=== PATIENT | male | born 1950 | race Caucasian/White ===

== ENCOUNTER 2024-08-07 14:22 | Inpatient (IN) ==
[2024-08-07 15:42] LABS: Basophils # (auto) 0.06 K/uL (0.00-0.20); Basophils % (auto) 0.7 %; Eosinophils # (auto) 0.26 K/uL (0.00-0.50); Hematocrit (blood only) 43.6 % (42.0-52.0); Hemoglobin 14.3 g/dl (14.0-18.0); Immature Granulocytes # (auto) 0.03 K/uL (0.01-0.20); Immature Granulocytes % (auto) 0.3 %; Lymphocytes # (auto) 2.05 K/uL (1.20-3.40); Lymphocytes % (auto) 23.4 %; Mean Corpuscular Hemoglobin 26.2 pg (25.0-34.0); Mean Corpuscular Hgb Conc 32.8 g/dL (32.0-36.0); Mean Corpuscular Volume 79.9 fL (80.0-100.0); Mean Platelet Volume 9.1 fL (9.4-12.4); Monocytes # (auto) 0.69 K/uL (0.11-0.59); Monocytes % (auto) 7.9 %; Neutrophils # (auto) 5.67 K/uL (1.40-6.50); Neutrophils % (auto) 64.7 %; Platelet Count 299 K/uL (130-400); RDW Coefficient of Variation 15.3 % (11.5-14.5); RDW Standard Deviation 44.3 fL (36.4-46.3); Red Blood Count 5.46 M/uL (4.70-6.10); White Blood Count 8.76 K/ul (4.8-10.8)
[2024-08-07 15:58] LABS: Albumin Globulin Ratio 1.3 (0.9-2); Albumin Level 4.3 gm/dl (3.4-5.0); BUN Creatinine Ratio 15.8 (10-20); Bilirubin,Total 0.6 mg/dl (0.2-1.0); Calcium 9.7 mg/dl (8.6-10.3); Creatinine Clr Calc Pharmacy 65.1 ml/min; Globulin 3.2 gm/dl (2.5-4.0); Potassium 4.2 mmol/L (3.5-5.1); Total Protein 7.5 gm/dl (6.0-8.3)
[2024-08-07] MEDS: OPTIRAY 320 100ml IV ONE (16:10)
--- NOTE | 2024-08-07 16:34 | CT Scan Report ---
CT abd pelvis IV con only CLINICAL HISTORY: lower abd pain TECHNIQUE: Helical axial images of the abdomen and pelvis were obtained and displayed. Automated dose lowering techniques and/or adjustment according to patient size were utilized for this exam. This e xam was performed with intravenous contrast. CT DOSE: 1127.28 mGy.cm COMPARISON: Prior CT abdomen pelvis 06/25/2022 FINDINGS: Lower chest: Bibasilar atelectasis versus scarring is seen. Liver: Subcentimeter hypodensities in the liver are too small to characterize. Gallbladder and biliary tree: Cholelithiasis is seen without evidence of cholecystitis. No intra- or extrahepatic biliary ductal dilation. Pancreas: Unremarkable, no focal lesions. Spleen: Wedge-shaped hypoperfusion of the spleen is noted. There is new from prior exam. Adrenals: Unremarkable. Kidneys and ureters: Bilateral lobulation of the kidney is again seen. Bladder: Unremarkable. Reproductive organs: Unremarkable. Bowel: Diverticulosis is seen without diverticulitis. The appendix is normal. Lymph nodes Retroperitoneal: Unremarkable. Pelvic: Unremarkable. Mesenteric: There is a soft tissue mass adjacent to the lesser gastric curvature measuring 3.2 x 2.4 cm with a hypodense center. There are subcentimeter surrounding nodules. Peritoneum: Normal. Vessels: Atherosclerotic calcifications are seen. Tiny infrarenal aneurysm measures 26 mm in diameter . Abdominal wall: A fat-containing umbilical hernia is seen. Bones: Degenerative changes in the visualized spine. IMPRESSION: 1. There is a mass abutting the stomach concerning for necrotic lymph node with surrounding subcenti meter nodes, likely malignancy of unknown origin. 2. Wedge-shaped hypodensities in the spleen, splenic infarcts cannot be excluded. 3. Diverticulosis without diverticulitis. 4. Additional findings as above. ACT 112: Negative or not required by law. Electronically signed by: Carrington Lew M.D. 08/07/2024 4:32 PM
--- NOTE | 2024-08-07 17:20 | Emergency Department Note ---
Impression & Plan Splenic infarct, Abdominal mass ED Provider Note NAME: ZEE CHOWDARY AGE: 74 SEX: M : 1950 ARRIVES VIA: Walk-In INFORMANT: Patient, family ED PROVIDER(S): Maurilio Suh MD CHIEF COMPLAINT: Abdominal pain MEDICAL DECISION MAKING: Patient presents due to concern abdominal pain. IV was established and blood work was obtained. Patient with a normal white count hemoglobin and platelet count. The patient's kidney function is unremarkable. Urinalysis without signs of blood or infection. CT abdomen pelvis does show concern for mass abutting the stomach concerning for necrotic lymph node. There also may be associated splenic infarcts although cannot be excluded. Patient does not have any significant upper abdominal pain but does complain of occasional discomfort. I did discuss the findings with the patient and the patient's family bedside. I discussed with the patient would likely benefit from a biopsy as well as additional hematology oncology consultation. They are comfortable with that plan of care. Given the possible new cancer diagnosis I did speak with on-call hematology oncologist States he stated the patient would likely benefit from biopsy. I did speak to the on-call medicine service Dr. Currie who requested a general surgery consultation given this possible mass abutting the stomach. I did speak with Camden Garcia PA-C and the patient would be evaluated. The patient was admitted by the medicine service. Discussion w/ other healthcare providers: Dr. Tan with hematology/oncology Camden Garcia PA-C with Dr. Waller general surgery Dr. Currie inpatient medicine service Prior /Outside records reviewed: None Differential diagnosis: Appendicitis, testicular torsion, UTI, diverticulitis, obstruction, renal colic, mesenteric adenitis, enteririts, PUD, pancreatitis, biliary pathology, hernia, volvulus, constipation, as well as other pathologies were considered. Diagnostics, as interpreted by me: ECG: None Cardiac monitoring: An order was placed for continuous cardiac monitoring. The monitor shows a rate of 65 with sinus rhythm. Patient was placed on pulse oximetry Medical decision rules: None Imaging studies: I informally interpreted the patient's CT abdomen pelvis does not show obvious bowel obstruction with formal report to follow. HPI: Patient presents due to concern for abdominal pain. The patient states that began on Wednesday has been fairly constant although will occasionally wax and wane. The patient notices it more in his upper left abdomen. The patient denies any nausea vomiting. No heavy lifting falls or trauma. The patient denies any blood in urine or stool. Patient has not taken anything for symptoms at home. Today the patient's pain was a bit more uncomfortable and thus presented here for further evaluation and treatment. Patient is accompanied by family at bedside. PAST MEDICAL HISTORY: See Below PAST SURGICAL HISTORY: See Below SOCIAL HISTORY: See Below HOME MEDICATIONS: See Below ALLERGIES: See Below VITALS: See Below PHYSICAL EXAMINATION: GENERAL: NAD, non-toxic. EYE EXAM: Normal conjunctiva. PERRL, no anisocoria and EOM's grossly intact w/o pain. OROPHARYNX: Moist mucus membranes, grossly normal dentition. NECK: Trachea midline, no stridor. Supple, no nuchal rigidity, no adenopathy, non-tender. No signs of meningismus. FROM of the neck with good chin to chest and neck extension. LUNGS: Clear to auscultation. Normal chest wall mechanics. HEART: NSR, no MRG. ABDOMEN: Abdomen soft, non-tender, no masses, no rebound or guarding. BACK: No CVA TTP. SKIN: No rashes and no bruising. UPPER EXTREMITIES: Upper extremities are grossly normal. LOWER EXTREMITIES: Grossly normal, no edema. NEURO EXAM: A&O x3, cranial nerves II-XII grossly intact, normal speech, moves all 4 extremities. Past Med/Surg History Problem List (Updated 08/08/24 @ 18:23 by Maurilio Suh MD) H/O: CVA (cerebrovascular accident) Chronic systolic CHF (congestive heart failure) Type 2 diabetes mellitus Splenic infarct (Acute) Abdominal mass (Acute) Iron deficiency anemia Dementia Weight loss Headache CAD (coronary artery disease) Stiffness due to immobility Hypertension Congestive heart failure (CHF) Diabetes COPD (chronic obstructive pulmonary disease) Active asthma Medical History Intolerant of cold CAD (coronary atherosclerotic disease) History of stroke without residual deficits Hyperlipemia History of heart attack History of alcohol abuse Hx of acne No pertinent family history Surgical History S/P CABG (coronary artery bypass graft) History of open heart surgery Family History Father Heart disease, Onset Age: 50 Myocardial infarction Social History Smoking Status: Former smoker Tobacco Type: Cigarettes Second Hand Exposure: No; Do You Dip or Chew Tobacco: No; Hx Alcohol Use: No Hx Substance Use: No Preferred Language: Urdu Communication Ability: Effective Visual Impairment: No Limitations Hearing Ability: Normal Cloud Engagement Partner Required: No Beliefs That Will Affect Care: None marital status: Current Living Situation: Family current occupational status: retired Other Information That Helps Us Care for You: No Feels Safe at Home: Yes Safety Concerns: Feels Safe At This Time Childhood Exposure to Second-Hand Smoke: Yes Diet: regular caffeine: Yes Dental Care, Regularly: Yes Physical Activity Frequency: Does not Exercise Seatbelt Use: always Sunscreen Use: No Assistive Devices: None Allergies Allergies Allergy/AdvReac Type Severity Reaction Status Date / Time ticagrelor [From Brilinta] Allergy Severe Dyspnea Verified 08/07/24 18:13 Home Meds Home Medications Medication Instructions Recorded Confirmed albuterol sulfate 90 mcg/actuation 2 puff inhalation UD PRN shortness 08/07/24 08/07/24 aerosol inhaler of breath or wheezing Previous Rx's Medication Instructions Recorded nitroglycerin 0.4 mg sublingual 0.4 mg buccal Q5M PRN chest pain 11/17/23 tablet #25 tabs fluticasone fur. 100 mcg-umeclid 1 inh inhalation DAILY 30 days #60 01/13/24 62.5 mcg-vilant 25 mcg ea inhalat.powder (Trelegy Ellipta) clopidogrel 75 mg tablet (Plavix) 75 mg PO DAILY #90 tabs 04/18/24 ezetimibe 10 mg tablet (Zetia) 10 mg PO DAILY #90 tabs 04/18/24 metformin 500 mg tablet,extended 2,000 mg (4 x 500 mg) PO DAILY 90 04/18/24 release 24 hr days #360 tabs atorvastatin 80 mg tablet 80 mg PO DAILY #90 tabs 05/12/24 donepezil 10 mg tablet 10 mg PO DAILY #90 tabs 05/12/24 ferrous sulfate 325 mg (65 mg 325 mg PO DAILY #30 tabs 05/12/24 iron) tablet losartan 50 mg tablet 50 mg PO DAILY #90 tabs 05/12/24 metoprolol succinate 50 mg 50 mg PO DAILY #90 tabs 05/12/24 tablet,extended release 24 hr Results & Data (ED) Vital Signs Vital Signs - 24 hr 08/07/24 18:59 08/07/24 19:06 08/07/24 20:00 Pulse Rate 60 Pulse Rate [Right Finger] 58 L 72 Respiratory Rate 18 18 Respiratory Effort / Characteristics Non-Labored Spontaneous Non-Labored Spontaneous Blood Pressure [Left Arm] 148/84 H 177/105 H Blood Pressure Mean [Left Arm] 105 129 Blood Pressure Position [Left Arm] Lying Pulse Oximetry 98 95 Oxygen Delivery Method Room Air Room Air 08/07/24 22:00 Pulse Rate Pulse Rate [Right Finger] 64 Respiratory Rate 18 Respiratory Effort / Characteristics Non-Labored Spontaneous Blood Pressure [Left Arm] 153/106 H Blood Pressure Mean [Left Arm] 121 Blood Pressure Position [Left Arm] Lying Pulse Oximetry 96 Oxygen Delivery Method Room Air Home Medications Current Medication List: was personally reviewed by me Laboratory Data Attestation: I reviewed the patient's lab results. 08/08/24 06:02 08/07/24 15:27 Lab Results 08/07/24 08/07/24 Range/Units 15:27 17:06 WBC 8.76 (4.8-10.8) K/ul RBC 5.46 (4.70-6.10) M/uL Hgb 14.3 (14.0-18.0) g/dl Hct 43.6 (42.0-52.0) % MCV 79.9 L (80.0-100.0) fL MCH 26.2 (25.0-34.0) pg MCHC 32.8 (32.0-36.0) g/dL RDW Std Deviation 44.3 (36.4-46.3) fL RDW Coeff of Fabian 15.3 H (11.5-14.5) % Plt Count 299 (130-400) K/uL MPV 9.1 L (9.4-12.4) fL Immature Gran % (Auto) 0.3 % Neut % (Auto) 64.7 % Lymph % (Auto) 23.4 % [place] % (Auto) 7.9 % Eos % (Auto) 3.0 % Baso % (Auto) 0.7 % Neut # (Auto) 5.67 (1.40-6.50) K/uL Lymph # (Auto) 2.05 (1.20-3.40) K/uL [place] # (Auto) 0.69 H (0.11-0.59) K/uL Eos # (Auto) 0.26 (0.00-0.50) K/uL Baso # (Auto) 0.06 (0.00-0.20) K/uL Immature Gran # (Auto) 0.03 (0.01-0.20) K/uL PT 10.6 (9.0-12.0) Seconds INR 1.0 (0.9-1.1) APTT 26 (21-31) Seconds PTT Ratio 1.0 Sodium 137 (136-145) mmol/L Potassium 4.2 (3.5-5.1) mmol/L Chloride 104 (98-107) mmol/L Carbon Dioxide 26 (21-32) mmol/L Anion Gap 7 (3-11) BUN 16 (6-23) mg/dl Creatinine 1.01 (0.6-1.4) mg/dl Est Cr Clr Drug Dosing 65.1 ml/min eGFR 78.53 BUN/Creatinine Ratio 15.8 (10-20) Glucose 165 H (70-99(Fasting)) mg/dl Calcium 9.7 (8.6-10.3) mg/dl Total Bilirubin 0.6 (0.2-1.0) mg/dl AST 11 L (13-39) U/L ALT 16 (7-52) U/L Alkaline Phosphatase 131 H (34-104) U/L Total Protein 7.5 (6.0-8.3) gm/dl Albumin 4.3 (3.4-5.0) gm/dl Globulin 3.2 (2.5-4.0) gm/dl Albumin/Globulin Ratio 1.3 (0.9-2) Lipase 41 (11-82) U/L Urine Color Yellow Urine Appearance Clear (Clear) Urine pH 5.0 (4.5-7.5) Ur Specific [place] > 1.045 H (1.000-1.030) Urine Protein Negative (Negative) Urine Glucose (UA) Negative (Negative) Urine Ketones Negative (Negative) Urine Blood Negative (Negative) Urine Nitrite Negative (Negative) Urine Bilirubin Negative (Negative) Urine Urobilinogen Negative (Negative) Ur Leukocyte Esterase Negative (Negative) Administered Medications Atorvastatin Calcium (Atorvastatin 40 Mg Tab) 80 mg PO DAILY [facility] Stop: 09/07/24 08:59 Last Admin: 08/08/24 08:43 Dose: 80 mg Documented By: GABRIEL Donepezil HCl (Donepezil Hcl 10 Mg Tab) 10 mg PO DAILY [facility] Stop: 09/07/24 08:59 Last Admin: 08/08/24 08:43 Dose: 10 mg Documented By: GABRIEL Ezetimibe (Ezetimibe 10 Mg Tab) 10 mg PO DAILY [facility] Stop: 09/07/24 08:59 Last Admin: 08/08/24 08:44 Dose: 10 mg Documented By: GABRIEL Ferrous Sulfate (Ferrous Sulfate 325 Mg Tab) 325 mg PO DAILY [facility] Stop: 09/07/24 08:59 Last Admin: 08/08/24 08:44 Dose: 325 mg Documented By: GABRIEL Fluticasone Furoate (Fluticasone Furoate 100mcg 14 Puffs/Inhaler) 1 puffs INH DAILY [facility] Stop: 09/07/24 08:59 Last Admin: 08/08/24 08:46 Dose: 1 puffs Documented By: GABRIEL Heparin Sodium/Dextrose (Heparin Sodium/Dextrose) 25,000 units in 500 mls @ 26 mls/hr IV .[id number] [facility]; Protocol Stop: 09/06/24 19:29 Last Admin: 08/08/24 15:22 Dose: 1,300 units/hr, 26 mls/hr Documented By: GABRIEL Co-signed By: LADY Titration: 08/08/24 14:52 Dose: Infused Documented By: GABRIEL Co-signed By: LADY Titration: 08/08/24 07:11 Dose: 1,300 units/hr, 26 mls/hr Documented By: GABRIEL Co-signed By: ROD Titration: 08/08/24 03:05 Dose: 1,300 units/hr, 26 mls/hr Documented By: ROD Co-signed By: [id number] Admin: 08/07/24 19:38 Dose: 1,300 units/hr, 26 mls/hr Documented By: RYAN Co-signed By: PJP Insulin Aspart (Insulin Aspart Per Unit Charge) 0 units SC Q6 [facility] Stop: 09/07/24 05:59 Last Admin: 08/08/24 18:00 Dose: Not Given Documented By: Admin: 08/08/24 13:41 Dose: Not Given Documented By: Admin: 08/08/24 06:07 Dose: Not Given Documented By: ROD Losartan Potassium (Losartan Potassium 50 Mg Tab) 50 mg PO DAILY [facility] Stop: 09/07/24 08:59 Last Admin: 08/08/24 08:42 Dose: Not Given Documented By: GABRIEL Metoprolol Succinate (Metoprolol Succ 50mg Ext Rel Tab) 50 mg PO DAILY [facility] Stop: 09/07/24 08:59 Last Admin: 08/08/24 08:44 Dose: 50 mg Documented By: GABRIEL Umeclidinium/Vilanterol (Umeclidinium/Vilanterol 62.5/25mcg 7 Puffs/Inhaler) 1 puffs INH DAILY [facility] Stop: 09/07/24 08:59 Last Admin: 08/08/24 08:46 Dose: 1 puffs Documented By: GABRIEL Discontinued Medications Lactated Ringer's (Lr) 1,000 mls @ 80 mls/hr IV .[id number] STA Stop: 08/08/24 20:28 Last Infusion: 08/08/24 15:56 Dose: Infused Documented By: Admin: 08/08/24 08:43 Dose: 80 mls/hr Documented By: GABRIEL Ioversol (Optiray 320 100ml) 94 ml IV ONCE ONE Stop: 08/07/24 16:10 Last Admin: 08/07/24 16:10 Dose: 94 ml Documented By: KELI Imaging Data Radiologist's Impression: Abdomen/Pelvis CT 08/07/24 15:58 CT abd pelvis IV con only CLINICAL HISTORY: lower abd pain TECHNIQUE: Helical axial images of the abdomen and pelvis were obtained and displayed. Automated dose lowering techniques and/or adjustment according to patient size were utilized for this exam. This exam was performed with intravenous contrast. CT DOSE: 1127.28 mGy.cm COMPARISON: Prior CT abdomen pelvis 06/25/2022 FINDINGS: Lower chest: Bibasilar atelectasis versus scarring is seen. Liver: Subcentimeter hypodensities in the liver are too small to characterize. Gallbladder and biliary tree: Cholelithiasis is seen without evidence of cholecystitis. No intra- or extrahepatic biliary ductal dilation. Pancreas: Unremarkable, no focal lesions. Spleen: Wedge-shaped hypoperfusion of the spleen is noted. There is new from prior exam. Adrenals: Unremarkable. Kidneys and ureters: Bilateral lobulation of the kidney is again seen. Bladder: Unremarkable. Reproductive organs: Unremarkable. Bowel: Diverticulosis is seen without diverticulitis. The appendix is normal. Lymph nodes Retroperitoneal: Unremarkable. Pelvic: Unremarkable. Mesenteric: There is a soft tissue mass adjacent to the lesser gastric curvature measuring 3.2 x 2.4 cm with a hypodense center. There are subcentimeter surrounding nodules. Peritoneum: Normal. Vessels: Atherosclerotic calcifications are seen. Tiny infrarenal aneurysm measures 26 mm in diameter. Abdominal wall: A fat-containing umbilical hernia is seen. Bones: Degenerative changes in the visualized spine. IMPRESSION: 1. There is a mass abutting the stomach concerning for necrotic lymph node with surrounding subcentimeter nodes, likely malignancy of unknown origin. 2. Wedge-shaped hypodensities in the spleen, splenic infarcts cannot be excluded. 3. Diverticulosis without diverticulitis. 4. Additional findings as above. ACT 112: Negative or not required by law. Electronically signed by: Carrington Lew M.D. 08/07/2024 4:32 PM Discharge Plan Visit Data Chief Complaint: Abdominal Pain Stated Complaint: ABDMOINAL PAIN, LOWER LT ED Provider: Maurilio Suh Discharge Problem: Splenic infarct, Abdominal mass Patient Disposition: Admitted As Inpatient Discharge Instructions Interventions: ED Discharge Assessment Last Done: 08/08/24 01:17 Discharge Problem: Abdominal mass Qualifiers: Abdominal location: unspecified location Qualified Code(s): R19.00 - Intra- abdominal and pelvic swelling, mass and lump, unspecified site
[2024-08-07 17:21] LABS: Appearance Urine Clear (Clear); Bilirubin Urine Negative (Negative); Blood Urine Negative (Negative); Color Urine Yellow; Glucose Urine UA Negative (Negative); Ketones Urine Negative (Negative); Leukocyte Esterase Urine Negative (Negative); Nitrite Urine Negative (Negative); Protein Urine Negative (Negative); Specific Gravity Urine > 1.045 (1.000-1.030); Urobilinogen Urine Negative (Negative)
[2024-08-07 19:13] LABS: Partial Thromboplastin Time 26 Seconds (21-31); Prothrombin Time 10.6 Seconds (9.0-12.0)
[2024-08-07] MEDS ORDERED: Heparin IV Adult Wt-Based Standard *NO* INITIAL Bolus Protocol IV SCH (19:13)
--- NOTE | 2024-08-07 19:22 | History & Physical Report ---
Date of Service August 07, 2024 Assessment & Plan (1) Splenic infarct: Plan: Suspect this is the cause of his acute abdominal pain which has now mostly resolved IV heparin initially for the ability to hold for procedures below (2) Abdominal mass: Plan: Unclear the best way to biopsy this. Will consult general surgery as does not appear ameanable to IR however recommending contacting IR tomorrow to discuss Consult gastroenterology to consider EGD prior to any biopsy Will need cardiac clearance given upcoming NM stress test therefore will consult his cardiolgist to consider doing this tomorrow if needed for cardiac clearance (3) CAD (coronary artery disease): Plan: Consult cardiology Clopidogrel on hold for potential procedures/biopsy Continue metoprolol, losartan, atorvastatin (4) Diabetes: Plan: Hemoglobin A1c 7.4 in May Only on metformin at baseline therefore doubtful he needs basal dosing unless needing correction frequently Novolog: --Goal BSG Range: Low 110 mg/dL, High 140 mg/dL --Correction Factor: 45 mg/dL/unit --No carb ratio --BSGs ACHS if eating, q6h if npo (5) Dementia: Plan: Continue donepezil Plan VTE prophylaxis - IV heparin Diet - regular, NPO at midnight Disposition - admit to med/tele Admission and Anticipated Discharge Date Admission Date: August 07, 2024 History of Present Illness Chief Complaint: Abdominal pain Primary Care Provider: DO Ottoniel Ambrocio Paige is a 74 year old male who presents to the ER with left sided abdominal pain. When seen in the ER it has mostly resolved at this time. Symptoms ongoing for the last 2-3 days getting progressively worse. Using pain medications, famotidine without any effect therefore decided to come to the ER today. No radiation. Worse on deep inspiration. Eating does not make it worse. No change in bowels, nausea, vomiting, hematochezia or melena. He has never had a pain like this before. No prior history of cancer. Of note he has also been having intermittent chest pains, none currently and is due to stress test organized by his utility appraiser later this week. He denies any current chest pain or shortness of breath. Allergies Allergy/AdvReac Type Severity Reaction Status Date / Time ticagrelor [From Brilinta] Allergy Severe Dyspnea Verified 08/07/24 18:13 Home Medications Medication Instructions Recorded Confirmed Type nitroglycerin 0.4 mg sublingual 0.4 mg buccal Q5M PRN chest pain 11/17/23 08/07/24 Rx tablet #25 tabs fluticasone fur. 100 mcg-umeclid 1 inh inhalation DAILY 30 days #60 01/13/24 08/07/24 Rx 62.5 mcg-vilant 25 mcg ea inhalat.powder (Trelegy Ellipta) clopidogrel 75 mg tablet (Plavix) 75 mg PO DAILY #90 tabs 04/18/24 08/07/24 Rx ezetimibe 10 mg tablet (Zetia) 10 mg PO DAILY #90 tabs 04/18/24 08/07/24 Rx metformin 500 mg tablet,extended 2,000 mg (4 x 500 mg) PO DAILY 90 04/18/24 08/07/24 Rx release 24 hr days #360 tabs atorvastatin 80 mg tablet 80 mg PO DAILY #90 tabs 05/12/24 08/07/24 Rx donepezil 10 mg tablet 10 mg PO DAILY #90 tabs 05/12/24 08/07/24 Rx ferrous sulfate 325 mg (65 mg 325 mg PO DAILY #30 tabs 05/12/24 08/07/24 Rx iron) tablet losartan 50 mg tablet 50 mg PO DAILY #90 tabs 05/12/24 08/07/24 Rx metoprolol succinate 50 mg 50 mg PO DAILY #90 tabs 05/12/24 08/07/24 Rx tablet,extended release 24 hr albuterol sulfate 90 mcg/actuation 2 puff inhalation UD PRN shortness 08/07/24 08/07/24 History aerosol inhaler of breath or wheezing Past Med/Surg History Problem List (Updated 08/07/24 @ 20:11 by Arnol Garcia PA-C) Splenic infarct Abdominal mass Iron deficiency anemia Dementia Weight loss Headache CAD (coronary artery disease) Stiffness due to immobility Hypertension Congestive heart failure (CHF) Diabetes COPD (chronic obstructive pulmonary disease) Active asthma Medical History Intolerant of cold CAD (coronary atherosclerotic disease) History of stroke without residual deficits Hyperlipemia History of heart attack History of alcohol abuse Hx of acne No pertinent family history Surgical History S/P CABG (coronary artery bypass graft) History of open heart surgery Family History Father Heart disease, Onset Age: 50 Myocardial infarction Social History Smoking Status: Former smoker Tobacco Type: Cigarettes Second Hand Exposure: No; Do You Dip or Chew Tobacco: No; Hx Alcohol Use: No Hx Substance Use: No Preferred Language: Swedish Communication Ability: Effective Visual Impairment: No Limitations Hearing Ability: Normal Medical Practice Assistant Required: No Beliefs That Will Affect Care: None marital status: Current Living Situation: Family current occupational status: retired Feels Safe at Home: Yes Childhood Exposure to Second-Hand Smoke: Yes Diet: regular caffeine: Yes Dental Care, Regularly: Yes Physical Activity Frequency: Does not Exercise Seatbelt Use: always Sunscreen Use: No Assistive Devices: None Review of Systems Review of Systems: All systems reviewed & are unremarkable except as noted in HPI & below Physical Exam Constitutional: WD/WN, vitals as above ENMT: external ear and nose normal, oropharynx normal Respiratory: normal respiratory effort, lungs clear to auscultation Cardiovascular: RRR, no murmur, no edema Gastrointestinal (Abdomen): normal bowel sounds, soft, nontender, no hepatosplenomegaly Musculoskeletal: no cyanosis or clubbing, extremities motor strength 5/5 Skin: no rashes, warm and dry Neurologic: moves all extremities and awake; not confused Psychiatric: A+Ox3, euthymic affect Results & Data Results & Data Vital Signs (Past 12 Hours) Vital Signs Temp Pulse Pulse Resp BP BP Pulse Ox 08/07/24 19:06 60 08/07/24 18:59 58 L 18 148/84 H 98 08/07/24 14:46 36.9 C 80 18 148/75 H 94 O2 Del Method 08/07/24 19:06 08/07/24 18:59 Room Air 08/07/24 14:46 Room Air Laboratory Results Abnormal lab results 08/07/24 08/07/24 Range/Units 15:27 17:06 MCV 79.9 L (80.0-100.0) fL RDW Coeff of Fabian 15.3 H (11.5-14.5) % MPV 9.1 L (9.4-12.4) fL [place] # (Auto) 0.69 H (0.11-0.59) K/uL Glucose 165 H (70-99(Fasting)) mg/dl AST 11 L (13-39) U/L Alkaline Phosphatase 131 H (34-104) U/L Ur Specific [place] > 1.045 H (1.000-1.030) Diagnostic Findings CT abd pelvis IV con only CLINICAL HISTORY: lower abd pain TECHNIQUE: Helical axial images of the abdomen and pelvis were obtained and displayed. Automated dose lowering techniques and/or adjustment according to patient size were utilized for this exam. This exam was performed with intravenous contrast. CT DOSE: 1127.28 mGy.cm COMPARISON: Prior CT abdomen pelvis 06/25/2022 FINDINGS: Lower chest: Bibasilar atelectasis versus scarring is seen. Liver: Subcentimeter hypodensities in the liver are too small to characterize. Gallbladder and biliary tree: Cholelithiasis is seen without evidence of cholecystitis. No intra- or extrahepatic biliary ductal dilation. Pancreas: Unremarkable, no focal lesions. Spleen: Wedge-shaped hypoperfusion of the spleen is noted. There is new from prior exam. Adrenals: Unremarkable. Kidneys and ureters: Bilateral lobulation of the kidney is again seen. Bladder: Unremarkable. Reproductive organs: Unremarkable. Bowel: Diverticulosis is seen without diverticulitis. The appendix is normal. Lymph nodes Retroperitoneal: Unremarkable. Pelvic: Unremarkable. Mesenteric: There is a soft tissue mass adjacent to the lesser gastric curvature measuring 3.2 x 2.4 cm with a hypodense center. There are subcentimeter surrounding nodules. Peritoneum: Normal. Vessels: Atherosclerotic calcifications are seen. Tiny infrarenal aneurysm measures 26 mm in diameter. Abdominal wall: A fat-containing umbilical hernia is seen. Bones: Degenerative changes in the visualized spine. IMPRESSION: 1. There is a mass abutting the stomach concerning for necrotic lymph node with surrounding subcentimeter nodes, likely malignancy of unknown origin. 2. Wedge-shaped hypodensities in the spleen, splenic infarcts cannot be excluded. 3. Diverticulosis without diverticulitis. 4. Additional findings as above. Medications Administered ER medications given: None ECG Additional Comments: Ordered and pending Code Status & VTE Plan Code Status Full VTE Prophylaxis Plan VTE Prophylaxis will be ordered: Yes PG Care Time/CCT Total # of Minutes Spent Total Time Spent with Patient: Total time spent is greater than 50% in coordination of care (as documented) at patient's floor/unit and/or counseling patient: Coding Level of Care Code 91156 INT INP/OBS CARE 3/75MIN Diagnoses Splenic infarct D73.5 Abdominal mass R19.00 CAD (coronary artery disease) I25.10 Diabetes E11.9 Dementia F03.90
[2024-08-07] MEDS: HEPARIN SODIUM/DEXTROSE 25,000 UNITS/500 ML BAG IV SCH (19:38)
--- NOTE | 2024-08-07 20:14 | Surgery Consultation ---
Date of Consultation August 07, 2024 Assessment & Plan (1) Abdominal mass: I discussed with the primary admitting hospitalist service. From surgical perspective we recommend the following: The etiology of patient's abdominal pain has not been definitively ascertained but could be related to underlying splenic infarcts. There there is no need for acute surgical intervention regarding this problem. The primary service has placed the patient on a heparin drip for this problem. There is concern the patient has a potential malignancy as he has a mass abutting his stomach is noted previously in this document. This is concerning for malignancy and the patient should likely undergo an oncologic evaluation including upper and lower endoscopy and potential GI evaluation. In addition may be beneficial to ask interventional radiology to see if they could potentially biopsy this lesion or if this lesion could be biopsied and a transgastric approach that time of upper endoscopy. Of note the primary service has consulted oncology for further evaluation Would recommend holding patient's Plavix until it is ascertained whether or not he will have any procedure intervention Would also be beneficial to consult cardiology as patient notes he has been having on and off chest pain prior to this admission and is scheduled for a stress test in 3 days. Prior to undergoing any procedure intervention he will require cardiology clearance Would make the patient n.p.o. after midnight tonight, they will be in the event patient requires any procedural intervention he will be ready to go. Additional recommendations be forthcoming based on his clinical course as it unfolds (2) Splenic infarct: History of Present Illness Reason for Consultation: Abdominal mass Possible splenic infarcts History of Present Illness This is a 74-year-old male who presented to the [facility] emergency department secondary to abdominal pain. Patient says that he has been having abdominal pain for approximately 2 to 3 days which she felt was indigestion. He tried several [id number] remedies without any abatement of his pain. As the pain is persistent he presented the emergency department. He does note that the pain is primarily located in the left side of his abdomen is somewhat worse with deep inspirations. With this pain he does not report any mitigating factors. He denies any nausea or vomiting. He has not had any fevers, shakes, or chills. He notes that his appetite has been normal. He denies any recent weight loss. He denies any hematemesis, melena, or hematochezia. He has never had any prior abdominal surgeries. Patient does report that he has a known history of coronary artery disease and follows locally with Dr. Luis E Rodney about any physician of general surgery. The patient notes that he underwent coronary artery bypass grafting at [facility] about approximately 20 years ago. He says that he has never had a percutaneous intervention following his coronary bypass grafting. He does note that he recently has been having on and off chest discomfort and is therefore been scheduled for stress test in 3 days from now. Patient also notes that he takes Plavix which she took today. Since arrival to the emergency department he has had labs and imaging which I independent reviewed. A CT scan abdomen pelvis showed the patient had a mass abutting the stomachinterpreting radiologist felt that this could represent a necrotic lymph node with potential malignant etiology. Patient was also noted to have some wedge-shaped hypodensities in the spleen concerning for splenic infarcts. Labs included CBC white blood cell count, hemoglobin, hematocrit, and platelet count were normal. Coagulation studies were normal. Chemistry profile showed sodium and potassium as well as the BUN and creatinine were normal. There is no elevation of his LFTs or lipase. Urinalysis is not indicative of infection. At the time of my interview he was resting comfortably bed he was no distress. Allergies Allergy/AdvReac Type Severity Reaction Status Date / Time ticagrelor [From Brilinta] Allergy Severe Dyspnea Verified 08/07/24 18:13 Home Medications Medication Instructions Recorded Confirmed Type nitroglycerin 0.4 mg sublingual 0.4 mg buccal Q5M PRN chest pain 11/17/23 08/07/24 Rx tablet #25 tabs fluticasone fur. 100 mcg-umeclid 1 inh inhalation DAILY 30 days #60 01/13/24 Rx 62.5 mcg-vilant 25 mcg ea inhalat.powder (Trelegy Ellipta) clopidogrel 75 mg tablet (Plavix) 75 mg PO DAILY #90 tabs 04/18/24 08/07/24 Rx ezetimibe 10 mg tablet (Zetia) 10 mg PO DAILY #90 tabs 04/18/24 08/07/24 Rx metformin 500 mg tablet,extended 2,000 mg (4 x 500 mg) PO DAILY 90 04/18/24 08/07/24 Rx release 24 hr days #360 tabs atorvastatin 80 mg tablet 80 mg PO DAILY #90 tabs 05/12/24 08/07/24 Rx donepezil 10 mg tablet 10 mg PO DAILY #90 tabs 05/12/24 08/07/24 Rx ferrous sulfate 325 mg (65 mg 325 mg PO DAILY #30 tabs 05/12/24 08/07/24 Rx iron) tablet losartan 50 mg tablet 50 mg PO DAILY #90 tabs 05/12/24 08/07/24 Rx metoprolol succinate 50 mg 50 mg PO DAILY #90 tabs 05/12/24 08/07/24 Rx tablet,extended release 24 hr albuterol sulfate 90 mcg/actuation 2 puff inhalation UD PRN shortness 08/07/24 08/07/24 History aerosol inhaler of breath or wheezing Patient History Medical History Intolerant of cold CAD (coronary atherosclerotic disease) History of stroke without residual deficits Hyperlipemia History of heart attack History of alcohol abuse Hx of acne No pertinent family history Surgical History S/P CABG (coronary artery bypass graft) History of open heart surgery Family History Father Heart disease, Onset Age: 50 Myocardial infarction Social History Smoking Status: Former smoker Tobacco Type: Cigarettes Second Hand Exposure: No; Do You Dip or Chew Tobacco: No; Hx Alcohol Use: No Hx Substance Use: No Preferred Language: Niuean Visual Impairment: No Limitations Hearing Ability: Normal Beliefs That Will Affect Care: None marital status: Current Living Situation: Alone current occupational status: retired Feels Safe at Home: Yes Childhood Exposure to Second-Hand Smoke: Yes Diet: regular caffeine: Yes Dental Care, Regularly: Yes Physical Activity Frequency: Does not Exercise Seatbelt Use: always Sunscreen Use: No Review of Systems Review of Systems: All systems reviewed & are unremarkable except as noted in HPI & below Physical Exam Constitutional: WD/WN, vitals as above Eyes: no conjunctival abnormality Wears glasses ENMT: Ears: no hearing impairment and no external ear abnormality Mouth: no oropharynx abnormality Neck: trachea midline Respiratory: normal respiratory effort; no respiratory distress and no labored breathing Cardiovascular: Rate/Rhythm: regular rate and regular rhythm Gastrointestinal (Abdomen): At the time of my exam the patient's abdomen is noted to be soft without distention. There is no rigidity. Patient did have some slight tenderness with deep palpation on the left side of his abdomen just lateral to the umbilicus. There is no rebound tenderness or guarding Musculoskeletal: No calf tenderness Skin: no rashes and no jaundice Neurologic: moves all extremities Psychiatric: A+Ox3, euthymic affect Results & Data Vital Signs (Past 12 Hours) Vital Signs Temp Pulse Pulse Resp BP BP Pulse Ox 08/07/24 19:06 60 08/07/24 18:59 58 L 18 148/84 H 98 08/07/24 14:46 36.9 C 80 18 148/75 H 94 O2 Del Method 08/07/24 19:06 08/07/24 18:59 Room Air 08/07/24 14:46 Room Air PG Care Time/CCT Total # of Minutes Spent Total Time Spent with Patient: Total time spent is greater than 50% in coordination of care (as documented) at patient's floor/unit and/or counseling patient: Coding Level of Care Code 40504 INT INP/OBS CARE 3/75MIN Diagnoses Abdominal mass R19.00 Splenic infarct D73.5
[2024-08-08] MEDS ORDERED: GLUCOSE 40% GEL 15 GM TUBE PO PRN (01:48)
[2024-08-08] MEDS ORDERED: CARBOHYDRATES FOR HYPOGLYCEMIA PO PRN (01:48)
[2024-08-08] MEDS ORDERED: GLUCAGON FOR INJ 1 MG VIAL SQ PRN (01:48)
[2024-08-08] MEDS ORDERED: DEXTROSE 50% 50 ML SYRINGE IV PRN (01:48)
[2024-08-08] MEDS ORDERED: GLUCOSE 10 TAB/TUBE PO PRN (01:48)
[2024-08-08] MEDS ORDERED: Nursing to Pharmacy Communication SCH (02:45)
[2024-08-08 03:00] LABS: ANTI-Xa, UFH(UnfractionatedHep 0.55 IU/ml (0.3-0.7)
[2024-08-08] MEDS: INSULIN ASPART PER UNIT CHARGE SC SCH (06:07)
[2024-08-08 06:24] LABS: Basophils # (auto) 0.07 K/uL (0.00-0.20); Basophils % (auto) 0.8 %; Eosinophils # (auto) 0.26 K/uL (0.00-0.50); Eosinophils % (auto) 2.8 %; Hematocrit (blood only) 44.1 % (42.0-52.0); Immature Granulocytes # (auto) 0.05 K/uL (0.01-0.20); Immature Granulocytes % (auto) 0.5 %; Lymphocytes # (auto) 2.83 K/uL (1.20-3.40); Lymphocytes % (auto) 30.4 %; Mean Corpuscular Hemoglobin 25.7 pg (25.0-34.0); Mean Corpuscular Hgb Conc 31.7 g/dL (32.0-36.0); Mean Corpuscular Volume 80.9 fL (80.0-100.0); Mean Platelet Volume 9.2 fL (9.4-12.4); Monocytes # (auto) 0.78 K/uL (0.11-0.59); Monocytes % (auto) 8.4 %; Neutrophils # (auto) 5.32 K/uL (1.40-6.50); Neutrophils % (auto) 57.1 %; Platelet Count 278 K/uL (130-400); RDW Coefficient of Variation 15.4 % (11.5-14.5); RDW Standard Deviation 44.9 fL (36.4-46.3); Red Blood Count 5.45 M/uL (4.70-6.10); White Blood Count 9.31 K/ul (4.8-10.8)
[2024-08-08 07:00] LABS: ANTI-Xa, UFH(UnfractionatedHep 0.69 IU/ml (0.3-0.7)
[2024-08-08] MEDS ORDERED: INSULIN ASPART PER UNIT CHARGE SC SCH (07:30)
[2024-08-08 07:32] LABS: Estimated Average Glucose 160 mg/dl; Hemoglobin A1C 7.2 % (4.5-5.6)
[2024-08-08] MEDS ORDERED: PHARMACY GLYCEMIC MGMT CONSULT PRN (07:56)
[2024-08-08] MEDS: LOSARTAN POTASSIUM 50 MG TAB PO SCH (08:42)
[2024-08-08] MEDS: ATORVASTATIN 40 MG TAB PO SCH (08:43)
[2024-08-08] MEDS: LACTATED RINGER'S 1,000 ML IV STA (08:43)
[2024-08-08] MEDS: DONEPEZIL HCL 10 MG TAB PO SCH (08:43)
[2024-08-08] MEDS: FERROUS SULFATE 325 MG TAB PO SCH (08:44)
[2024-08-08] MEDS: EZETIMIBE 10 MG TAB PO SCH (08:44)
[2024-08-08] MEDS: METOPROLOL SUCC 50MG EXT REL TAB PO SCH (08:44)
[2024-08-08] MEDS: UMECLIDINIUM/VILANTEROL 62.5/25MCG 7 PUFFS/INHALER INH SCH (08:46)
[2024-08-08] MEDS: FLUTICASONE FUROATE 100MCG 14 PUFFS/INHALER INH SCH (08:46)
--- NOTE | 2024-08-08 08:47 | Electrocardiogram Report ---
Test Reason : Blood Pressure : */* mmHG Vent. Rate : 61 BPM Atrial Rate : 61 BPM P-R Int : 204 ms QRS Dur : 90 ms QT Int : 426 ms P-R-T Axes : 45 38 81 degrees QTcB Int : 428 ms Sinus rhythm with Premature atrial complexes Poor R wave progression, consider anterior [place] vs. lead placement vs. LVH T wave abnormality, consider lateral ischemia Abnormal ECG When compared with ECG of 17-Jul-2024 16:41, (unconfirmed) Premature atrial complexes are now Present Confirmed by Mohit Piña ([id number]) on 08/08/2024 8:46:52 AM Referred By: REFERRED SELF Confirmed By: Mohit Piña
--- NOTE | 2024-08-08 09:10 | Gastrointestinal Consultation ---
<Statement entered by James Martin MD - 08/08/24 15:40> Case discussed with Lanie BAE. Images reviewed with radiologist. It appears to be a malignant lymph node which obviously will not be approachable via EGD although EUS could yield tissue. However, there may also be a mass vs inflammatory thickening at the GE junction. Therefore, as long as patient's stress test is negative and he is able to undergo procedures from a cardiac standpoint would start with EGD and if this does not give an answer would refer for EUS. I spoke with patient's daughter, Ms Griffin, by phone. Discussed EGD. The procedure, alternatives including no work up or treatment, risks and benefits were discussed. Among the risks discussed included cardiorespiratory suppression, aspiration, bleeding, failure to diagnose cancer or other pathology and perforation requiring surgery. In addition we discussed that if specimens are obtained it may be deemed beneficial to send these for genetic/DNA testing. The patient's daughter claimed to understand all that was discussed and all of her questions were answered. She consents pending the cardiac evaluation. If successful we would need to hold his heparin drip prior to the procedure. Date of Consultation August 08, 2024 Assessment & Plan (1) Abdominal mass: 74 year old male wit history of CAD s/p CABG, ischemic cardiomyopathy, dementia, DM, CHF, COPD and others below admitted through the ED w/ abnormal imaging showing a mass abutting the stomach concerning for necrotic lymph node with surrounding subcentimeter nodes, likely malignancy of unknown origin. Consider IR evaluation If IR unable to sample, we recommend transfer to a tertiary center for EUS evaluation I spent a total of 60 minutes on the date of service in review of patient's record, and previously obtained information in person and appropriate medical visit, discussion and education of plan, with patient and/or caregiver, placing orders for tests/referral/procedures as medically necessary and documentation of pertinent clinical information in patient's medical records for their visit today. Thank you for allowing us to participate in the care of this patient. Please call with any acute changes, questions or concerns. Please see addendum below with additional recommendation from my supervising physician. Was able to review with radiology - they do feel there is abnormality at GEJ. Pt is at stress test. If negative, hold heparin gtt and we can do EGD 08/09 if able to obtain consent. Will TT primary team with update. History of Present Illness Reason for Consultation: mass abutting stomach Requesting Physician: Leo Burger MD Attending Physician: Leo Burger MD History of Present Illness 74 year old male wit history of CAD s/p CABG, ischemic cardiomyopathy, dementia, DM, CHF, COPD and others below admitted through the ED w/ abnormal imaging. GI was asked to evaluate for a mass abutting the stomach. Pt was seen and evaluated, chart reviewed. He notes he was in his typical state of health until 2-3 days ago. He finds them hard to explain and does not want to call his discomfort pain - ore of a upset stomach/nausea. Generalized to his upper abd. Did seem worse with PO intake. No vomiting. Denies change in bowel habits. No black or bloody stools. CTAP 2023: There is a mass abutting the stomach concerning for necrotic lymph node with surrounding subcentimeter nodes, likely malignancy of unknown origin. Wedge-shaped hypodensities in the spleen, splenic infarcts cannot be excluded. Diverticulosis without diverticulitis. Additional findings as above. No family history of GI malignancy He tells me he has never had an EGD/Colonoscopy in the past. [place] records received showing Colonoscopy x 3, most recently in 2019 w/ a recall set for five years. EGD: none [facility] 2019:- Two diminutive polyps in the sigmoid colon, removed with a cold biopsy forceps. Resected and retrieved. - Mild diverticulosis in the sigmoid colon. - The exam was otherwise normal to the cecum. [facility] 2015: - Small lipoma in the cecum. Biopsied. - One 3 mm polyp in the ascending colon. Resected and retrieved. - Four 2 to 3 mm polyps at the hepatic flexure. Resected and retrieved. - Two 2 to 3 mm polyps in the descending colon. Resected and retrieved. - One diminutive polyp in the sigmoid colon. Complete resection. Polyp tissue not retrieved. - One 3 mm polyp in the rectum. Resected and retrieved. - Diverticulosis in the sigmoid colon. [facility] 2011: - Preparation of the colon was fair. - One 12 mm polyp in the ascending colon. Resected and retrieved. - Four 5 to 8 mm polyps in the transverse colon. Resected and retrieved. - One 7 mm polyp in the sigmoid colon. Resected and retrieved. - Diverticulosis in the sigmoid colon. Allergies Allergy/AdvReac Type Severity Reaction Status Date / Time ticagrelor [From Brilinta] Allergy Severe Dyspnea Verified 08/07/24 18:13 Home Medications Medication Instructions Recorded Confirmed Type nitroglycerin 0.4 mg sublingual 0.4 mg buccal Q5M PRN chest pain 11/17/23 08/07/24 Rx tablet #25 tabs fluticasone fur. 100 mcg-umeclid 1 inh inhalation DAILY 30 days #60 01/13/24 08/07/24 Rx 62.5 mcg-vilant 25 mcg ea inhalat.powder (Trelegy Ellipta) clopidogrel 75 mg tablet (Plavix) 75 mg PO DAILY #90 tabs 04/18/24 08/07/24 Rx ezetimibe 10 mg tablet (Zetia) 10 mg PO DAILY #90 tabs 04/18/24 08/07/24 Rx metformin 500 mg tablet,extended 2,000 mg (4 x 500 mg) PO DAILY 90 04/18/24 08/07/24 Rx release 24 hr days #360 tabs atorvastatin 80 mg tablet 80 mg PO DAILY #90 tabs 05/12/24 08/07/24 Rx donepezil 10 mg tablet 10 mg PO DAILY #90 tabs 05/12/24 08/07/24 Rx ferrous sulfate 325 mg (65 mg 325 mg PO DAILY #30 tabs 05/12/24 08/07/24 Rx iron) tablet losartan 50 mg tablet 50 mg PO DAILY #90 tabs 05/12/24 08/07/24 Rx metoprolol succinate 50 mg 50 mg PO DAILY #90 tabs 05/12/24 08/07/24 Rx tablet,extended release 24 hr albuterol sulfate 90 mcg/actuation 2 puff inhalation UD PRN shortness 08/07/24 08/07/24 History aerosol inhaler of breath or wheezing Patient History Medical History Intolerant of cold CAD (coronary atherosclerotic disease) History of stroke without residual deficits Hyperlipemia History of heart attack History of alcohol abuse Hx of acne No pertinent family history Surgical History S/P CABG (coronary artery bypass graft) History of open heart surgery Family History Father Heart disease, Onset Age: 50 Myocardial infarction Social History Smoking Status: Former smoker Tobacco Type: Cigarettes Second Hand Exposure: No; Do You Dip or Chew Tobacco: No; Hx Alcohol Use: No Hx Substance Use: No Preferred Language: Kyrgyz Communication Ability: Effective Visual Impairment: No Limitations Hearing Ability: Normal Car Porter Required: No Beliefs That Will Affect Care: None marital status: Current Living Situation: Family current occupational status: retired Other Information That Helps Us Care for You: No Feels Safe at Home: Yes Safety Concerns: Feels Safe At This Time Childhood Exposure to Second-Hand Smoke: Yes Diet: regular caffeine: Yes Dental Care, Regularly: Yes Physical Activity Frequency: Does not Exercise Seatbelt Use: always Sunscreen Use: No Assistive Devices: None Review of Systems Review of Systems: All other findings negative except as noted in HPI. Physical Exam Constitutional: WD/WN, vitals as above Respiratory: normal respiratory effort, lungs clear to auscultation Cardiovascular: Rate/Rhythm: regular rate and regular rhythm Results & Data Vital Signs (Past 12 Hours) Vital Signs Temp Pulse Pulse Resp BP Pulse Ox O2 Del Method 08/08/24 07:38 91 H 08/08/24 07:04 36.8 C 63 18 117/71 95 Room Air 08/08/24 04:00 36.6 C 57 L 18 152/79 H 95 Room Air 08/08/24 02:11 36.4 C L 58 L 18 169/81 H 97 Room Air 08/08/24 01:47 57 L 08/08/24 00:00 59 L 14 148/80 H 97 Room Air 08/07/24 23:30 57 L 20 165/88 H 97 Room Air 08/07/24 22:00 64 18 153/106 H 96 Room Air Laboratory Results 08/08/24 08/08/24 08/08/24 Range/Units 07:59 06:05 06:02 WBC 9.31 (4.8-10.8) K/ul RBC 5.45 (4.70-6.10) M/uL Hgb 14.0 (14.0-18.0) g/dl Hct 44.1 (42.0-52.0) % MCV 80.9 (80.0-100.0) fL MCH 25.7 (25.0-34.0) pg MCHC 31.7 L (32.0-36.0) g/dL RDW Std Deviation 44.9 (36.4-46.3) fL RDW Coeff of Fabian 15.4 H (11.5-14.5) % Plt Count 278 (130-400) K/uL MPV 9.2 L (9.4-12.4) fL Immature Gran % (Auto) 0.5 % Neut % (Auto) 57.1 % Lymph % (Auto) 30.4 % [place] % (Auto) 8.4 % Eos % (Auto) 2.8 % Baso % (Auto) 0.8 % Neut # (Auto) 5.32 (1.40-6.50) K/uL Lymph # (Auto) 2.83 (1.20-3.40) K/uL [place] # (Auto) 0.78 H (0.11-0.59) K/uL Eos # (Auto) 0.26 (0.00-0.50) K/uL Baso # (Auto) 0.07 (0.00-0.20) K/uL Immature Gran # (Auto) 0.05 (0.01-0.20) K/uL PT (9.0-12.0) Seconds INR (0.9-1.1) APTT (21-31) Seconds PTT Ratio Heparin Anti-Xa, Unfract 0.69 (0.3-0.7) IU/ml Sodium (136-145) mmol/L Potassium (3.5-5.1) mmol/L Chloride (98-107) mmol/L Carbon Dioxide (21-32) mmol/L Anion Gap (3-11) BUN (6-23) mg/dl Creatinine (0.6-1.4) mg/dl Est Cr Clr Drug Dosing ml/min eGFR BUN/Creatinine Ratio (10-20) Glucose (70-99(Fasting)) mg/dl POC Glucose 143 H 110 H (70-99) mg/dl Estimat Average Glucose mg/dl Hemoglobin A1c (4.5-5.6) % Calcium (8.6-10.3) mg/dl Total Bilirubin (0.2-1.0) mg/dl AST (13-39) U/L ALT (7-52) U/L Alkaline Phosphatase (34-104) U/L Total Protein (6.0-8.3) gm/dl Albumin (3.4-5.0) gm/dl Globulin (2.5-4.0) gm/dl Albumin/Globulin Ratio (0.9-2) Lipase (11-82) U/L Urine Color Urine Appearance (Clear) Urine pH (4.5-7.5) Ur Specific [place] (1.000-1.030) Urine Protein (Negative) Urine Glucose (UA) (Negative) Urine Ketones (Negative) Urine Blood (Negative) Urine Nitrite (Negative) Urine Bilirubin (Negative) Urine Urobilinogen (Negative) Ur Leukocyte Esterase (Negative) 08/08/24 08/08/24 08/08/24 Range/Units 02:05 02:04 01:59 WBC (4.8-10.8) K/ul RBC (4.70-6.10) M/uL Hgb (14.0-18.0) g/dl Hct (42.0-52.0) % MCV (80.0-100.0) fL MCH (25.0-34.0) pg MCHC (32.0-36.0) g/dL RDW Std Deviation (36.4-46.3) fL RDW Coeff of Fabian (11.5-14.5) % Plt Count (130-400) K/uL MPV (9.4-12.4) fL Immature Gran % (Auto) % Neut % (Auto) % Lymph % (Auto) % [place] % (Auto) % Eos % (Auto) % Baso % (Auto) % Neut # (Auto) (1.40-6.50) K/uL Lymph # (Auto) (1.20-3.40) K/uL [place] # (Auto) (0.11-0.59) K/uL Eos # (Auto) (0.00-0.50) K/uL Baso # (Auto) (0.00-0.20) K/uL Immature Gran # (Auto) (0.01-0.20) K/uL PT (9.0-12.0) Seconds INR (0.9-1.1) APTT (21-31) Seconds PTT Ratio Heparin Anti-Xa, Unfract 0.55 (0.3-0.7) IU/ml Sodium (136-145) mmol/L Potassium (3.5-5.1) mmol/L Chloride (98-107) mmol/L Carbon Dioxide (21-32) mmol/L Anion Gap (3-11) BUN (6-23) mg/dl Creatinine (0.6-1.4) mg/dl Est Cr Clr Drug Dosing ml/min eGFR BUN/Creatinine Ratio (10-20) Glucose (70-99(Fasting)) mg/dl POC Glucose 143 H (70-99) mg/dl Estimat Average Glucose 160 mg/dl Hemoglobin A1c 7.2 H (4.5-5.6) % Calcium (8.6-10.3) mg/dl Total Bilirubin (0.2-1.0) mg/dl AST (13-39) U/L ALT (7-52) U/L Alkaline Phosphatase (34-104) U/L Total Protein (6.0-8.3) gm/dl Albumin (3.4-5.0) gm/dl Globulin (2.5-4.0) gm/dl Albumin/Globulin Ratio (0.9-2) Lipase (11-82) U/L Urine Color Urine Appearance (Clear) Urine pH (4.5-7.5) Ur Specific [place] (1.000-1.030) Urine Protein (Negative) Urine Glucose (UA) (Negative) Urine Ketones (Negative) Urine Blood (Negative) Urine Nitrite (Negative) Urine Bilirubin (Negative) Urine Urobilinogen (Negative) Ur Leukocyte Esterase (Negative) 08/07/24 08/07/24 Range/Units 17:06 15:27 WBC 8.76 (4.8-10.8) K/ul RBC 5.46 (4.70-6.10) M/uL Hgb 14.3 (14.0-18.0) g/dl Hct 43.6 (42.0-52.0) % MCV 79.9 L (80.0-100.0) fL MCH 26.2 (25.0-34.0) pg MCHC 32.8 (32.0-36.0) g/dL RDW Std Deviation 44.3 (36.4-46.3) fL RDW Coeff of Fabian 15.3 H (11.5-14.5) % Plt Count 299 (130-400) K/uL MPV 9.1 L (9.4-12.4) fL Immature Gran % (Auto) 0.3 % Neut % (Auto) 64.7 % Lymph % (Auto) 23.4 % [place] % (Auto) 7.9 % Eos % (Auto) 3.0 % Baso % (Auto) 0.7 % Neut # (Auto) 5.67 (1.40-6.50) K/uL Lymph # (Auto) 2.05 (1.20-3.40) K/uL [place] # (Auto) 0.69 H (0.11-0.59) K/uL Eos # (Auto) 0.26 (0.00-0.50) K/uL Baso # (Auto) 0.06 (0.00-0.20) K/uL Immature Gran # (Auto) 0.03 (0.01-0.20) K/uL PT 10.6 (9.0-12.0) Seconds INR 1.0 (0.9-1.1) APTT 26 (21-31) Seconds PTT Ratio 1.0 Heparin Anti-Xa, Unfract (0.3-0.7) IU/ml Sodium 137 (136-145) mmol/L Potassium 4.2 (3.5-5.1) mmol/L Chloride 104 (98-107) mmol/L Carbon Dioxide 26 (21-32) mmol/L Anion Gap 7 (3-11) BUN 16 (6-23) mg/dl Creatinine 1.01 (0.6-1.4) mg/dl Est Cr Clr Drug Dosing 65.1 ml/min eGFR 78.53 BUN/Creatinine Ratio 15.8 (10-20) Glucose 165 H (70-99(Fasting)) mg/dl POC Glucose (70-99) mg/dl Estimat Average Glucose mg/dl Hemoglobin A1c (4.5-5.6) % Calcium 9.7 (8.6-10.3) mg/dl Total Bilirubin 0.6 (0.2-1.0) mg/dl AST 11 L (13-39) U/L ALT 16 (7-52) U/L Alkaline Phosphatase 131 H (34-104) U/L Total Protein 7.5 (6.0-8.3) gm/dl Albumin 4.3 (3.4-5.0) gm/dl Globulin 3.2 (2.5-4.0) gm/dl Albumin/Globulin Ratio 1.3 (0.9-2) Lipase 41 (11-82) U/L Urine Color Yellow Urine Appearance Clear (Clear) Urine pH 5.0 (4.5-7.5) Ur Specific [place] > 1.045 H (1.000-1.030) Urine Protein Negative (Negative) Urine Glucose (UA) Negative (Negative) Urine Ketones Negative (Negative) Urine Blood Negative (Negative) Urine Nitrite Negative (Negative) Urine Bilirubin Negative (Negative) Urine Urobilinogen Negative (Negative) Ur Leukocyte Esterase Negative (Negative) PG Care Time/CCT Total # of Minutes Spent Total Time Spent with Patient: Total time spent is greater than 50% in coordination of care (as documented) at patient's floor/unit and/or counseling patient: Coding Level of Care Code 11766 INT INP/OBS CARE 2/55MIN Diagnoses Abdominal mass, unspecified abdominal location R19.00 Abdominal location: unspecified location (1) Abdominal mass Abdominal location: unspecified location Qualified Code(s): R19.00 - Intra-abdominal and pelvic swelling, mass and lump, unspecified site
--- NOTE | 2024-08-08 12:49 | Hospitalist Progress Note ---
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 #Abdominal pain #Splenic infarcts #Abdominal mass, suspicious for malignancy CT abdomen pelvis showed mass abutting the stomach concerning for necrotic lymph node with surrounding subcentimeter nodes, likely malignancy of unknown origin and also findings concerning for splenic infarcts He was seen by general surgery He was started on IV heparin infusion on admission GI saw the patient and recommending IR for possible biopsy and if IR unable to do biopsy then he will need transfer to tertiary care facility for EUS with biopsy: Awaiting final recommendations from GI attending regarding EGD. Patient currently remains n.p.o. I spoke with IR Dr. Keith Zhang: He will review images and most likely biopsy tomorrow. Oncology consult: Dr. Tan to see patient tomorrow Patient's pain is under control, Tylenol as needed for pain control #Coronary disease status post CABG in 2006 #History of CVA #Essential hypertension #Hyperlipidemia #Ischemic cardiomyopathy/chronic systolic congestive heart failure with EF of 45% with apical aneurysm Outpatient rider ticket worker is Dr. Luis E Rodney Cardiology has been consulted regarding stress test: Patient was scheduled to have an outpatient stress test in the next 2 days, await cardiology consult and recommendations Plavix has been held secondary to possibility of biopsy either today or tomorrow Continue statin Continue metoprolol beta-calli and losartan with hold parameters Monitor vital signs I/O monitoring Daily weights #Type 2 diabetes mellitus A1c 7.2 Patient on metformin at home Check B12 levels in a.m. Pharmacy consult for glycemic control #Dementia Continue donezepil Supportive care from nursing staff CODE STATUS: Full code DVT prophylaxis: Patient on heparin infusion Care plan discussed with patient, nursing staff, daughter Arin Griffin ([phone]) updated on the phone. Admission and Anticipated Discharge Date Admission Date: August 07, 2024 Subjective Patient seen and examined H&P reviewed Labs reviewed Radiology reviewed Vital signs reviewed Patient currently states pain is 2 out of 10 and denies any nausea, vomiting, di arrhea, abdominal pain, chest pain, shortness of breath, hematemesis, hematuria, fever, chills Social history: Patient denies tobacco use or alcohol use. He is retired. He lives with his daughter and son-in-law. He is independent of ADLs Review of Systems Review of Systems: As per HPI Physical Exam Physical Exam: General: No acute distress Psych: Awake and alert, oriented to place and person. Patient was not able to recall today's date HEENT: Anicteric sclera, moist oral mucosa CVS: Regular rate and rhythm Lungs: Bilateral air entry, no wheezing noted Abdomen: Soft, nontender, no rebound, no guarding Ext: No lower extremity edema, no calf tenderness Neuro: No focal motor deficits noted Results & Data Results & Data Vital Signs (Past 12 Hours) Vital Signs Temp Pulse Pulse Resp BP Pulse Ox O2 Del Method 08/08/24 10:28 36.9 C 62 18 142/73 H 95 Room Air 08/08/24 07:38 91 H 08/08/24 07:04 36.8 C 63 18 117/71 95 Room Air 08/08/24 04:00 36.6 C 57 L 18 152/79 H 95 Room Air 08/08/24 02:11 36.4 C L 58 L 18 169/81 H 97 Room Air 08/08/24 01:47 57 L Laboratory Results Laboratory Results - last 24 hr 08/07/24 08/07/24 08/08/24 15:27 17:06 01:59 WBC 8.76 RBC 5.46 Hgb 14.3 Hct 43.6 MCV 79.9 L MCH 26.2 MCHC 32.8 RDW Std Deviation 44.3 RDW Coeff of Fabian 15.3 H Plt Count 299 MPV 9.1 L Immature Gran % (Auto) 0.3 Neut % (Auto) 64.7 Lymph % (Auto) 23.4 [place] % (Auto) 7.9 Eos % (Auto) 3.0 Baso % (Auto) 0.7 Neut # (Auto) 5.67 Lymph # (Auto) 2.05 [place] # (Auto) 0.69 H Eos # (Auto) 0.26 Baso # (Auto) 0.06 Immature Gran # (Auto) 0.03 PT 10.6 INR 1.0 APTT 26 PTT Ratio 1.0 Heparin Anti-Xa, Unfract Sodium 137 Potassium 4.2 Chloride 104 Carbon Dioxide 26 Anion Gap 7 BUN 16 Creatinine 1.01 Est Cr Clr Drug Dosing 65.1 eGFR 78.53 BUN/Creatinine Ratio 15.8 Glucose 165 H POC Glucose Estimat Average Glucose 160 Hemoglobin A1c 7.2 H Calcium 9.7 Total Bilirubin 0.6 AST 11 L ALT 16 Alkaline Phosphatase 131 H Total Protein 7.5 Albumin 4.3 Globulin 3.2 Albumin/Globulin Ratio 1.3 Lipase 41 Urine Color Yellow Urine Appearance Clear Urine pH 5.0 Ur Specific [place] > 1.045 H Urine Protein Negative Urine Glucose (UA) Negative Urine Ketones Negative Urine Blood Negative Urine Nitrite Negative Urine Bilirubin Negative Urine Urobilinogen Negative Ur Leukocyte Esterase Negative 08/08/24 08/08/24 08/08/24 02:04 02:05 06:02 WBC 9.31 RBC 5.45 Hgb 14.0 Hct 44.1 MCV 80.9 MCH 25.7 MCHC 31.7 L RDW Std Deviation 44.9 RDW Coeff of Fabian 15.4 H Plt Count 278 MPV 9.2 L Immature Gran % (Auto) 0.5 Neut % (Auto) 57.1 Lymph % (Auto) 30.4 [place] % (Auto) 8.4 Eos % (Auto) 2.8 Baso % (Auto) 0.8 Neut # (Auto) 5.32 Lymph # (Auto) 2.83 [place] # (Auto) 0.78 H Eos # (Auto) 0.26 Baso # (Auto) 0.07 Immature Gran # (Auto) 0.05 PT INR APTT PTT Ratio Heparin Anti-Xa, Unfract 0.55 0.69 Sodium Potassium Chloride Carbon Dioxide Anion Gap BUN Creatinine Est Cr Clr Drug Dosing eGFR BUN/Creatinine Ratio Glucose POC Glucose 143 H Estimat Average Glucose Hemoglobin A1c Calcium Total Bilirubin AST ALT Alkaline Phosphatase Total Protein Albumin Globulin Albumin/Globulin Ratio Lipase Urine Color Urine Appearance Urine pH Ur Specific [place] Urine Protein Urine Glucose (UA) Urine Ketones Urine Blood Urine Nitrite Urine Bilirubin Urine Urobilinogen Ur Leukocyte Esterase 08/08/24 08/08/24 08/08/24 06:05 07:59 11:56 WBC RBC Hgb Hct MCV MCH MCHC RDW Std Deviation RDW Coeff of Fabian Plt Count MPV Immature Gran % (Auto) Neut % (Auto) Lymph % (Auto) [place] % (Auto) Eos % (Auto) Baso % (Auto) Neut # (Auto) Lymph # (Auto) [place] # (Auto) Eos # (Auto) Baso # (Auto) Immature Gran # (Auto) PT INR APTT PTT Ratio Heparin Anti-Xa, Unfract Sodium Potassium Chloride Carbon Dioxide Anion Gap BUN Creatinine Est Cr Clr Drug Dosing eGFR BUN/Creatinine Ratio Glucose POC Glucose 110 H 143 H 138 H Estimat Average Glucose Hemoglobin A1c Calcium Total Bilirubin AST ALT Alkaline Phosphatase Total Protein Albumin Globulin Albumin/Globulin Ratio Lipase Urine Color Urine Appearance Urine pH Ur Specific [place] Urine Protein Urine Glucose (UA) Urine Ketones Urine Blood Urine Nitrite Urine Bilirubin Urine Urobilinogen Ur Leukocyte Esterase Diagnostic Findings Abdomen/Pelvis CT 08/07/24 15:58 CT abd pelvis IV con only CLINICAL HISTORY: lower abd pain TECHNIQUE: Helical axial images of the abdomen and pelvis were obtained and di splayed. Automated dose lowering techniques and/or adjustment according to patient size were utilized for this exam. This exam was performed with intravenous contrast. CT DOSE: 1127.28 mGy.cm COMPARISON: Prior CT abdomen pelvis 06/25/2022 FINDINGS: Lower chest: Bibasilar atelectasis versus scarring is seen. Liver: Subcentimeter hypodensities in the liver are too small to characterize. Gallbladder and biliary tree: Cholelithiasis is seen without evidence of cholecystitis. No intra- or extrahepatic biliary ductal dilation. Pancreas: Unremarkable, no focal lesions. Spleen: Wedge-shaped hypoperfusion of the spleen is noted. There is new from prior exam. Adrenals: Unremarkable. Kidneys and ureters: Bilateral lobulation of the kidney is again seen. Bladder: Unremarkable. Reproductive organs: Unremarkable. Bowel: Diverticulosis is seen without diverticulitis. The appendix is normal. Lymph nodes Retroperitoneal: Unremarkable. Pelvic: Unremarkable. Mesenteric: There is a soft tissue mass adjacent to the lesser gastric curvature measuring 3.2 x 2.4 cm with a hypodense center. There are subcentimeter surrounding nodules. Peritoneum: Normal. Vessels: Atherosclerotic calcifications are seen. Tiny infrarenal aneurysm measures 26 mm in diameter. Abdominal wall: A fat-containing umbilical hernia is seen. Bones: Degenerative changes in the visualized spine. IMPRESSION: 1. There is a mass abutting the stomach concerning for necrotic lymph node with surrounding subcentimeter nodes, likely malignancy of unknown origin. 2. Wedge-shaped hypodensities in the spleen, splenic infarcts cannot be excluded. 3. Diverticulosis without diverticulitis. 4. Additional findings as above. ACT 112: Negative or not required by law. Electronically signed by: Carrington Lew M.D. 08/07/2024 4:32 PM PG Care Time/CCT Total # of Minutes Spent Total Time Spent with Patient: Total time spent is greater than 50% in coordination of care (as documented) at patient's floor/unit and/or counseling patient: Coding Level of Care Code 16357 SUB INP/OBS CARE 3/50MIN Diagnoses Abdominal mass, unspecified abdominal location R19.00 Abdominal location: unspecified location Splenic infarct D73.5 CAD (coronary artery disease) I25.10 Chronic systolic CHF (congestive heart failure) I50.22 Hypertension I10 H/O: CVA (cerebrovascular accident) Z86.73 Type 2 diabetes mellitus E11.9 COPD (chronic obstructive pulmonary disease) J44.9 Dementia F03.90 (1) Abdominal mass Abdominal location: unspecified location Qualified Code(s): R19.00 - Intra- abdominal and pelvic swelling, mass and lump, unspecified site
--- NOTE | 2024-08-08 14:06 | Surgery Progress Note ---
Date of Service August 08, 2024 Assessment & Plan (1) Abdominal mass: Plan: Pt here w/ abdominal pain and generalized feeling of something being off CT performed yesterday showed a mass abutting the stomach concerning for necrotic lymph node with surrounding subcentimeter nodes, likely malignancy of unknown origin. Along with concern for splenic infarcts WBC 9, Hbg 14 Abdomen soft/non tender, non distended. Denies n/v/pain he is on a heparin gtt for concern of splenic infarct GI recommended possible IR for tissue sampling and if not then may need tsfer for EUS I touched base with IR as well who is aware of the patient and says they will review images and see if there is a safe window tomorrow Pt undergoing a dobutamine stress test today and just left the floor for this study Plavix is on hold as above. currently no pain. oncologic w/u in progress. will continue to follow for now no surgical plans. (2) Splenic infarct: Admission and Anticipated Discharge Date Admission Date: August 07, 2024 Subjective Patient currently denies abdominal pain, nausea/vomiting, CP/SOB, change in bowel habits. + weight loss of 10-15lbs over last several weeks. No history of GI malignancy in family that he is aware of Physical Exam Physical Exam: awake/alert Gastrointestinal (Abdomen): Inspection/Auscultation: abdomen not distended Percussion/Palpation: abdomen soft; abdomen nontender Results & Data Vital Signs (Past 12 Hours) Vital Signs Temp Pulse Pulse Resp BP Pulse Ox O2 Del Method 08/08/24 10:28 98.4 F 62 18 142/73 H 95 Room Air 08/08/24 07:38 91 H 08/08/24 07:04 98.2 F 63 18 117/71 95 Room Air 08/08/24 04:00 97.9 F 57 L 18 152/79 H 95 Room Air 08/08/24 02:11 97.5 F L 58 L 18 169/81 H 97 Room Air PG Care Time/CCT Total # of Minutes Spent Total Time Spent with Patient: Total time spent is greater than 50% in coordination of care (as documented) at patient's floor/unit and/or counseling patient: Coding Level of Care Code 03705 SUB INP/OBS CARE 1/25MIN Diagnoses Abdominal mass, unspecified abdominal location R19.00 Abdominal location: unspecified location Splenic infarct D73.5 (1) Abdominal mass Abdominal location: unspecified location Qualified Code(s): R19.00 - Intra- abdominal and pelvic swelling, mass and lump, unspecified site
--- NOTE | 2024-08-08 17:00 | XCELERA ---
[id number]
[2024-08-08] MEDS: INFLUENZA VACC TS2024-25(65y+)/PF (IIV3) 0.5mL Syr IM ONE (18:43)
--- NOTE | 2024-08-08 22:14 | Cardiology Consultation ---
Date of Consultation August 08, 2024 Assessment & Plan (1) CAD (coronary artery disease): 3vessel CABG 2006 (MENDOZA to LAD, SVG to OM, SVG to PDA) PCI SVG to PDA 2007 Patent grafts cath 2014 2. 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 Mild aortic stenosis 4. Splenic infarcts 5. Abdominal mass/inflammatory thickening at GE junction 6. Type 2 DM 7. Dementia 8. Hypertension Patient underwent repeat echo today which showed preserved LV function with old apical aneurysm. No evidence of LV thrombus. Description of symptoms very atypical for angina and suspect more related to GI issues and abdominal pathology. Based on patient's symptoms and coronary anatomy unlikely to have high risk disease for which intervention would change prognosis. Risk of cardiac adverse events for planned procedures and/or abdominal surgery is intermediate or less. OK to proceed with procedures without additional cardiac testing. OK to hold clopidogrel currently. Ideally resume when no further procedures planned. Continue current toprol, losartan and atorvastatin. History of Present Illness Attending Physician: Leo Burger MD History of Present Illness Mr. Gibson is a very pleasant 74-year-old man with coronary disease post three-vessel CABG, prior PCI to SVG to PDA seen today in hospital for preoperative cardiac assessment. Patient previously received cardiac care from [facility] and before that [facility]. Initially seen by me 04/2023, moved to the area approximately 1 year prior from [place]. Patient has a long history of coronary artery disease post CABG in 2006 at [facility] (MENDOZA to LAD, SVG to OM, SVG to PDA. In 2007 had recurrent symptoms and underwent PCI with stent placement to graft to PDA. Last heart catheterization back in 2014 in the setting of NSTEMI reportedly showed patent grafts and patent stent in SVG to PDA. Patient with ischemic cardiomyopathy with mildly reduced ejection fraction last EF 45% and apical aneurysm. Also with a history of type 2 diabetes, hypertension, dyslipidemia, and nonobstructive lower extremity PAD by PHOEBE. Remote CVA in 1991. Also with COPD and prior long-term smoker before diagnosis of CAD. Now with mild dementia. Patient last seen by me 3 weeks ago. At that time endoresed atypical LT sided pain occuring at primarily at rest. Seemed more GI but with history stress test ordered. Patient admitted yesterday with 2 days of abdominal pain. On CT found to have splenic infarct and abdominal mass abutting the stomach with concern for necrotic lymph node. Today feels comfortable. Denies any chest pain. Denies significant abdominal pain. 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 Here today with his daughter Tricias in [place]. Long-term smoker, quit in his 50s. History of EtOH addiction age [age] Most recent cardiac testing: [facility]OE[facility] 09/2021: Right 0.87, toe pressure 89, left 1.0, toe pressure 100 Echo 03/2022: EF 45 to 50%, mild LVH, moderate size apical aneurysm with mid anterior/anteroseptal hypokinesis, DD 1 Aortoiliac ultrasound 03/2014: Ectatic proximal abdominal aorta 3.0 cm Carotid duplex 12/2021: <50% bilateral ICA stenosis Allergies Allergy/AdvReac Type Severity Reaction Status Date / Time ticagrelor [From Brilinta] Allergy Severe Dyspnea Verified 08/07/24 18:13 Home Medications Medication Instructions Recorded Confirmed Type nitroglycerin 0.4 mg sublingual 0.4 mg buccal Q5M PRN chest pain 11/17/23 08/07/24 Rx tablet #25 tabs fluticasone fur. 100 mcg-umeclid 1 inh inhalation DAILY 30 days #60 01/13/24 08/07/24 Rx 62.5 mcg-vilant 25 mcg ea inhalat.powder (Trelegy Ellipta) clopidogrel 75 mg tablet (Plavix) 75 mg PO DAILY #90 tabs 04/18/24 08/07/24 Rx ezetimibe 10 mg tablet (Zetia) 10 mg PO DAILY #90 tabs 04/18/24 08/07/24 Rx metformin 500 mg tablet,extended 2,000 mg (4 x 500 mg) PO DAILY 90 04/18/24 08/07/24 Rx release 24 hr days #360 tabs atorvastatin 80 mg tablet 80 mg PO DAILY #90 tabs 05/12/24 08/07/24 Rx donepezil 10 mg tablet 10 mg PO DAILY #90 tabs 05/12/24 08/07/24 Rx ferrous sulfate 325 mg (65 mg 325 mg PO DAILY #30 tabs 05/12/24 08/07/24 Rx iron) tablet losartan 50 mg tablet 50 mg PO DAILY #90 tabs 05/12/24 08/07/24 Rx metoprolol succinate 50 mg 50 mg PO DAILY #90 tabs 05/12/24 08/07/24 Rx tablet,extended release 24 hr albuterol sulfate 90 mcg/actuation 2 puff inhalation UD PRN shortness 08/07/24 08/07/24 History aerosol inhaler of breath or wheezing Patient History Medical History Intolerant of cold CAD (coronary atherosclerotic disease) History of stroke without residual deficits Hyperlipemia History of heart attack History of alcohol abuse Hx of acne No pertinent family history Surgical History S/P CABG (coronary artery bypass graft) History of open heart surgery Family History Father Heart disease, Onset Age: 50 Myocardial infarction Social History Smoking Status: Former smoker Tobacco Type: Cigarettes Second Hand Exposure: No; Do You Dip or Chew Tobacco: No; Hx Alcohol Use: No Hx Substance Use: No Preferred Language: Mongolian Communication Ability: Effective Visual Impairment: No Limitations Hearing Ability: Normal Cobol Mainframe Developer Required: No Beliefs That Will Affect Care: None marital status: Current Living Situation: Family current occupational status: retired Other Information That Helps Us Care for You: No Feels Safe at Home: Yes Safety Concerns: Feels Safe At This Time Childhood Exposure to Second-Hand Smoke: Yes Diet: regular caffeine: Yes Dental Care, Regularly: Yes Physical Activity Frequency: Does not Exercise Seatbelt Use: always Sunscreen Use: No Assistive Devices: None Review of Systems Review of Systems: All systems reviewed & are unremarkable except as noted in HPI & below Physical Exam Physical Exam: General: Comfortable HEENT: Sclerae anicteric Lungs: Clear to auscultation bilaterally Cardiac: Regular rate and rhythm, no murmurs. 2/6 systolic aortic murmur Abdomen: Soft, nontender Extremities: Well perfused, no peripheral edema Neuro: Nonfocal Psych: Alert orient x3, normal affect and mood Results & Data Vital Signs (Past 12 Hours) Vital Signs Temp Pulse Pulse Resp BP BP Pulse Ox 08/08/24 19:00 97.9 F 59 L 18 164/81 H 96 08/08/24 16:10 63 08/08/24 15:24 97.7 F 54 L 18 149/74 H 95 08/08/24 10:28 98.4 F 62 18 142/73 H 95 O2 Del Method 08/08/24 19:00 Room Air 08/08/24 16:10 08/08/24 15:24 Room Air 08/08/24 10:28 Room Air PG Care Time/CCT Total # of Minutes Spent Total Time Spent with Patient: Total time spent is greater than 50% in coordination of care (as documented) at patient's floor/unit and/or counseling patient: Coding Level of Care Code 45399 INT INP/OBS CARE 255MIN Diagnoses CAD (coronary artery disease) I25.10
[2024-08-09 07:04] LABS: Hematocrit (blood only) 39.9 % (42.0-52.0); Hemoglobin 13.1 g/dl (14.0-18.0); Mean Corpuscular Hemoglobin 26.1 pg (25.0-34.0); Mean Corpuscular Hgb Conc 32.8 g/dL (32.0-36.0); Mean Corpuscular Volume 79.5 fL (80.0-100.0); Mean Platelet Volume 9.2 fL (9.4-12.4); Platelet Count 258 K/uL (130-400); RDW Coefficient of Variation 14.8 % (11.5-14.5); Red Blood Count 5.02 M/uL (4.70-6.10); White Blood Count 8.79 K/ul (4.8-10.8)
--- NOTE | 2024-08-09 07:27 | Oncology Consultation ---
Date of Consultation August 09, 2024 Assessment & Plan (1) Abdominal mass: EGD has been performed, biopsies have been obtained, awaiting results of pathology to give further recommendations. Most likely primary GI malignancy, he will need outpatient workup including a PET CT scan and discussion of treatment options which may include chemotherapy versus chemoradiation. (2) Splenic infarct: The patient has a splenic infarct but started on heparin, noticed improvement in his symptoms while on heparin. After his EGD the gastroenterology team has recommended against instituting anticoagulation in the short-term interval given the risk of bleeding. I appreciate their recommendations and would agree with them. Will consider outpatient anticoagulation with Eliquis once the patient is discharged and establish care with hematology oncology on an outpatient basis. Heparin can be put on hold right now given that the patient underwent recent GI procedure and per GI recommendations. Plan Thank you for this interesting oncological consult, total of 60 minutes were spent in counseling, coordination of care and review of prior records. History of Present Illness Reason for Consultation: Abdominal mass splenic infarcts recommendations for anticoagulation Attending Physician: Leo Burger MD History of Present Illness Mr. Gibson is a very pleasant 74-year-old man who initially presented to the ER on August 07, 2024 with left-sided abdominal pain. At that time the pain has been going on for the preceding 2 to 3 days and was getting progressively worse. He ended up having a CT of the abdomen pelvis 08/07/2024 which revealed a mass a butting the stomach concerning for necrotic lymph node as well as a wedge-shaped hypodensity concerning for splenic infarct. Hematology has been consulted to assist in management of this gentleman with presumed GI malignancy along with splenic infarct. He was started on heparin, his abdominal symptoms improved significantly. 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 His heparin has been stopped. He is accompanied by his daughters today and reports to me that his pain is improved significantly. Allergies Allergy/AdvReac Type Severity Reaction Status Date / Time ticagrelor [From Brilinta] Allergy Severe Dyspnea Verified 08/07/24 18:13 Home Medications Medication Instructions Recorded Confirmed Type nitroglycerin 0.4 mg sublingual 0.4 mg buccal Q5M PRN chest pain 11/17/23 08/07/24 Rx tablet #25 tabs fluticasone fur. 100 mcg-umeclid 1 inh inhalation DAILY 30 days #60 01/13/24 08/07/24 Rx 62.5 mcg-vilant 25 mcg ea inhalat.powder (Trelegy Ellipta) clopidogrel 75 mg tablet (Plavix) 75 mg PO DAILY #90 tabs 04/18/24 08/07/24 Rx ezetimibe 10 mg tablet (Zetia) 10 mg PO DAILY #90 tabs 04/18/24 08/07/24 Rx metformin 500 mg tablet,extended 2,000 mg (4 x 500 mg) PO DAILY 90 04/18/24 08/07/24 Rx release 24 hr days #360 tabs atorvastatin 80 mg tablet 80 mg PO DAILY #90 tabs 05/12/24 08/07/24 Rx donepezil 10 mg tablet 10 mg PO DAILY #90 tabs 05/12/24 08/07/24 Rx ferrous sulfate 325 mg (65 mg 325 mg PO DAILY #30 tabs 05/12/24 08/07/24 Rx iron) tablet losartan 50 mg tablet 50 mg PO DAILY #90 tabs 05/12/24 08/07/24 Rx metoprolol succinate 50 mg 50 mg PO DAILY #90 tabs 05/12/24 08/07/24 Rx tablet,extended release 24 hr albuterol sulfate 90 mcg/actuation 2 puff inhalation UD PRN shortness 08/07/24 08/07/24 History aerosol inhaler of breath or wheezing Patient History Medical History Intolerant of cold CAD (coronary atherosclerotic disease) History of stroke without residual deficits Hyperlipemia History of heart attack History of alcohol abuse Hx of acne No pertinent family history Surgical History S/P CABG (coronary artery bypass graft) History of open heart surgery Family History Father Heart disease, Onset Age: 50 Myocardial infarction Social History Smoking Status: Former smoker Tobacco Type: Cigarettes Second Hand Exposure: No; Do You Dip or Chew Tobacco: No; Hx Alcohol Use: No Hx Substance Use: No Preferred Language: Spanish Communication Ability: Effective Visual Impairment: No Limitations Hearing Ability: Normal Dry Wall Finisher Required: No Beliefs That Will Affect Care: None marital status: Current Living Situation: Family current occupational status: retired Other Information That Helps Us Care for You: No Feels Safe at Home: Yes Safety Concerns: Feels Safe At This Time Childhood Exposure to Second-Hand Smoke: Yes Diet: regular caffeine: Yes Dental Care, Regularly: Yes Physical Activity Frequency: Does not Exercise Seatbelt Use: always Sunscreen Use: No Assistive Devices: None Review of Systems Review of Systems: All systems reviewed & are unremarkable except as noted in HPI & below Significant for abdominal pain on presentation, abdominal pain has improved otherwise rest of the review of system was unremarkable Constitutional: as per Subjective / HPI Eyes: as per Subjective / HPI Ear, Nose, Mouth, Throat: as per Subjective / HPI Respiratory: as per Subjective / HPI Cardiovascular: as per Subjective / HPI Gastrointestinal: as per Subjective / HPI Genitourinary: + as per Subjective / HPI Musculoskeletal: as per Subjective / HPI Integumentary: as per Subjective / HPI Neurologic: as per Subjective / HPI Psychiatric: as per Subjective / HPI Endocrine: as per Subjective / HPI Hematologic / Lymphatic: as per Subjective / HPI Allergy / Immunological: as per Subjective / HPI Physical Exam Constitutional: WD/WN, vitals as above Eyes: PERRL, conjunctivae normal, anicteric sclerae ENMT: external ear and nose normal, oropharynx normal Neck: trachea midline, no thyromegaly Respiratory: normal respiratory effort, lungs clear to auscultation Cardiovascular: RRR, no murmur, no edema Gastrointestinal (Abdomen): normal bowel sounds, soft, nontender, no hepatosplenomegaly Musculoskeletal: no cyanosis or clubbing, extremities motor strength 5/5 Skin: no rashes, warm and dry Neurologic: patellar DTR's 2+ bilat, sensation intact Psychiatric: A+Ox3, euthymic affect Genitourinary: no testicular masses, no penis abnormality Lymphatic: no cervical or axillary lymphadenopathy Results & Data Vital Signs (Past 12 Hours) Vital Signs Temp Pulse Pulse Resp BP Pulse Ox O2 Del Method 08/09/24 07:21 80 08/09/24 04:00 36.8 C 79 18 149/81 H 96 Room Air 08/08/24 23:53 36.5 C 70 18 142/74 H 95 Room Air 08/08/24 23:35 Room Air 08/08/24 22:10 71 (1) Abdominal mass Abdominal location: unspecified location Qualified Code(s): R19.00 - Intra- abdominal and pelvic swelling, mass and lump, unspecified site
[2024-08-09 07:45] LABS: BUN Creatinine Ratio 14.4 (10-20); Creatinine Clr Calc Pharmacy 73.1 ml/min; Magnesium 1.9 mg/dl (1.7-2.4); Potassium 3.5 mmol/L (3.5-5.1)
--- NOTE | 2024-08-09 07:47 | Surgery Progress Note ---
Date of Service August 09, 2024 Assessment & Plan (1) Abdominal mass: Plan: CT concerning for a mass abutting the stomach concerning for necrotic lymph node with surrounding subcentimeter nodes, likely malignancy of unknown origin. Along with concern for splenic infarcts Abdomen soft/ttp, non distended, mild nausea he is on a heparin gtt for concern of splenic infarct scheduled for GI procedure today for possible BX, will follow results no surgical plans as above. IR stating they cannot bx...if egd neg may need to see if Dr. Tinsley or Ramiro can bx transgastric via EUS. Admission and Anticipated Discharge Date Admission Date: August 07, 2024 Subjective still with abd discomfort + nausea no vomiting Bm yesterday waiting for GI procedure today Review of Systems Respiratory: no dyspnea Gastrointestinal: + abdominal pain and + nausea; no vomiti ng Physical Exam Respiratory: normal respiratory effort; no respiratory distress Cardiovascular: Rate/Rhythm: regular rate Gastrointestinal (Abdomen): Inspection/Auscultation: abdomen not distended Percussion/Palpation: + abdomen tender and abdomen soft Results & Data Vital Signs (Past 12 Hours) Vital Signs Temp Pulse Pulse Resp BP Pulse Ox O2 Del Method 08/09/24 07:21 80 08/09/24 04:00 98.2 F 79 18 149/81 H 96 Room Air 08/08/24 23:53 97.7 F 70 18 142/74 H 95 Room Air 08/08/24 23:35 Room Air 08/08/24 22:10 71 PG Care Time/CCT Total # of Minutes Spent Total Time Spent with Patient: Total time spent is greater than 50% in coordination of care (as documented) at patient's floor/unit and/or counseling patient: Coding Level of Care Code 80230 SUB INP/OBS CARE 25MIN Diagnoses Abdominal mass, unspecified abdominal location R19.00 Abdominal location: unspecified location (1) Abdominal mass Abdominal location: unspecified location Qualified Code(s): R19.00 - Intra- abdominal and pelvic swelling, mass and lump, unspecified site
[2024-08-09] MEDS: ACETAMINOPHEN 500 MG TAB PO PRN (08:33)
[2024-08-09] MEDS: POTASSIUM CHLORIDE CRTAB 20 MEQ TABCR PO STA (08:33)
--- NOTE | 2024-08-09 08:50 | Radiology Progress Note ---
Date of Service August 09, [address] images reviewed. The gastrohepatic lymph node is not amenable to percutaneous biopsy. Recommend EUS biospy for diagnosis. D/W Dr Parra. Results & Data Vital Signs (Past 12 Hours) Vital Signs Temp Pulse Pulse Resp BP BP Pulse Ox 08/09/24 07:58 36.8 C 58 L 16 163/64 H 94 08/09/24 07:21 80 08/09/24 04:00 36.8 C 79 18 149/81 H 96 08/08/24 23:53 36.5 C 70 18 142/74 H 95 08/08/24 23:35 08/08/24 22:10 71 O2 Del Method 08/09/24 07:58 Room Air 08/09/24 07:21 08/09/24 04:00 Room Air 08/08/24 23:53 Room Air 08/08/24 23:35 Room Air 08/08/24 22:10
--- NOTE | 2024-08-09 09:10 | Gastroenterology Progress Note ---
Date of Service August 09, 2024 Assessment & Plan (1) Abdominal mass: Plan: 74 year old male wit history of CAD s/p CABG, ischemic cardiomyopathy, dementia, DM, CHF, COPD and others below admitted through the ED w/ abnormal imaging showing a mass abutting the stomach concerning for necrotic lymph node with surrounding subcentimeter nodes, likely malignancy of unknown origin. Was able to review with radiology - they do feel there is abnormality at GEJ. Cardiology evaluation yesterday, heparin gtt on hold. Maintain NPO status for EGD evaluation this AM. We appreciate assistance in the management of any serological abnormality and corrections to include: hemoglobin >7, INR <2, platelets >50,000, potassium levels >3.5 but <5.3, and sodium levels within 5 points of the reference range prior to endoscopic evaluation. Thank you for allowing us to participate in the care of this patient. Please call with any acute changes, questions or concerns. Please see addendum below with additional recommendation from my supervising physician. Admission and Anticipated Discharge Date Admission Date: August 07, 2024 Subjective Pt was seen and evaluated, chart reviewed. CT reviewed w/ radiology and there was concern for GEJ abnormality. NPO for EGD evaluation this AM. Heparin gtt on hold. Review of Systems Review of Systems: All other findings negative except as noted in HPI. Physical Exam Constitutional: WD/WN, vitals as above Respiratory: normal respiratory effort, lungs clear to auscultation Cardiovascular: RRR, no murmur, no edema Gastrointestinal (Abdomen): normal bowel sounds, soft, nontender, no hepatosplenomegaly Skin: no rashes, warm and dry Results & Data Results & Data Vital Signs (Past 12 Hours) Vital Signs Temp Pulse Pulse Resp BP BP Pulse Ox 08/09/24 07:58 36.8 C 58 L 16 163/64 H 94 08/09/24 07:21 80 08/09/24 04:00 36.8 C 79 18 149/81 H 96 08/08/24 23:53 36.5 C 70 18 142/74 H 95 08/08/24 23:35 08/08/24 22:10 71 O2 Del Method 08/09/24 07:58 Room Air 08/09/24 07:21 08/09/24 04:00 Room Air 08/08/24 23:53 Room Air 08/08/24 23:35 Room Air 08/08/24 22:10 Laboratory Results 08/09/24 08/09/24 08/08/24 Range/Units 06:21 05:35 20:11 WBC 8.79 (4.8-10.8) K/ul RBC 5.02 (4.70-6.10) M/uL Hgb 13.1 L (14.0-18.0) g/dl Hct 39.9 L (42.0-52.0) % MCV 79.5 L (80.0-100.0) fL MCH 26.1 (25.0-34.0) pg MCHC 32.8 (32.0-36.0) g/dL RDW Std Deviation 43.0 (36.4-46.3) fL RDW Coeff of Fabian 14.8 H (11.5-14.5) % Plt Count 258 (130-400) K/uL MPV 9.2 L (9.4-12.4) fL Heparin Anti-Xa, Unfract 0.70 (0.3-0.7) IU/ml Sodium 140 (136-145) mmol/L Potassium 3.5 (3.5-5.1) mmol/L Chloride 106 (98-107) mmol/L Carbon Dioxide 25 (21-32) mmol/L Anion Gap 9 (3-11) BUN 13 (6-23) mg/dl Creatinine 0.90 (0.6-1.4) mg/dl Est Cr Clr Drug Dosing 73.1 ml/min eGFR 90.18 BUN/Creatinine Ratio 14.4 (10-20) Glucose 131 H (70-99(Fasting)) mg/dl POC Glucose 120 H 105 H (70-99) mg/dl Calcium 9.0 (8.6-10.3) mg/dl Magnesium 1.9 (1.7-2.4) mg/dl Vitamin B12 518 (180-914) pg/ml 08/08/24 08/08/24 Range/Units 17:06 11:56 WBC (4.8-10.8) K/ul RBC (4.70-6.10) M/uL Hgb (14.0-18.0) g/dl Hct (42.0-52.0) % MCV (80.0-100.0) fL MCH (25.0-34.0) pg MCHC (32.0-36.0) g/dL RDW Std Deviation (36.4-46.3) fL RDW Coeff of Fabian (11.5-14.5) % Plt Count (130-400) K/uL MPV (9.4-12.4) fL Heparin Anti-Xa, Unfract (0.3-0.7) IU/ml Sodium (136-145) mmol/L Potassium (3.5-5.1) mmol/L Chloride (98-107) mmol/L Carbon Dioxide (21-32) mmol/L Anion Gap (3-11) BUN (6-23) mg/dl Creatinine (0.6-1.4) mg/dl Est Cr Clr Drug Dosing ml/min eGFR BUN/Creatinine Ratio (10-20) Glucose (70-99(Fasting)) mg/dl POC Glucose 121 H 138 H (70-99) mg/dl Calcium (8.6-10.3) mg/dl Magnesium (1.7-2.4) mg/dl Vitamin B12 (180-914) pg/ml PG Care Time/CCT Total # of Minutes Spent Total Time Spent with Patient: Total time spent is greater than 50% in coordination of care (as documented) at patient's floor/unit and/or counseling patient: Coding Level of Care Code None Diagnoses Abdominal mass, unspecified abdominal location R19.00 Abdominal location: unspecified location (1) Abdominal mass Abdominal location: unspecified location Qualified Code(s): R19.00 - Intra- abdominal and pelvic swelling, mass and lump, unspecified site
--- NOTE | 2024-08-09 09:13 | Pharmacy Report ---
Pharmacy Glycemic Sign Off Nt - Date of Service August 09, 2024 - Assessment & Plan ASSESSMENT: * Pharmacy was consulted by Dr Burger on 08/08 for glycemic control and to write orders per [facility] inpatient glycemic control protocol. * Major changes made by pharmacy to antidiabetic regimen include: * added novolog SSI * Patient has been receiving/requiring 0 units of insulin per day for adequate glycemic control * BSGs ranging 100s-140s mg/dl * Regimen has not required any adjustments * Please see recommendations for outpatient antidiabetic regimen below. PLAN FOR INPATIENT GLYCEMIC CONTROL: No changes needed to current regimen. * No basal insulin is warranted * Continue NovoLog per scale ACHS/Q6hrs while NPO * Goal range = 110-140 mg/dl * CF = 45 mg/dl/unit * CR = 1 unit for ever 20 g CHO consumed * Pharmacy is signing off of glycemic consult and will no longer be making adjustments to inpatient regimen. Please feel free to re-consult if needed. Thank you.
--- NOTE | 2024-08-09 10:02 | Hospitalist Progress Note ---
Date of Service August 09, 2024 Assessment & Plan (1) Abdominal mass: (2) Splenic infarct: (3) CAD (coronary artery disease): (4) Chronic systolic CHF (congestive heart failure): (5) Hypertension: (6) H/O: CVA (cerebrovascular accident): (7) Type 2 diabetes mellitus: (8) COPD (chronic obstructive pulmonary disease): (9) Dementia: Plan 74-year-old male with past medical history of dementia, coronary artery disease status post CABG in 2006 with cardiac cath in 2014 showing patent grafts, ischemic cardiomyopathy with EF of 45% with apical aneurysm, type 2 diabetes mellitus, history of CVA, essential hypertension, hyperlipidemia, asymptomatic mild lower extremity PAD by PHOEBE, history of prior tobacco use with COPD who presents to the ED with abdominal pain with CT scan showing splenic infarcts and mass abutting the stomach concerning for necrotic lymph node with surrounding subcentimeter nodes, likely malignancy of unknown origin. #Abdominal pain #Splenic infarcts #Abdominal mass, suspicious for malignancy CT abdomen pelvis showed mass abutting the stomach concerning for necrotic lymph node with surrounding subcentimeter nodes, likely malignancy of unknown origin and also findings concerning for splenic infarcts He was seen by general surgery He is currently on a heparin infusion which has been held for EGD today I spoke with IR Dr. Keith Zhang: He reviewed the images and felt that the gastrohepatic lymph node is not amenable to percutaneous biopsy. Patient is scheduled for EGD today: Awaiting EGD to see if there is any abnormality that is able to be biopsied. If patient not able to get biopsy through EGD, then he will need to be transferred to tertiary care center for EUS biopsy Oncology consult: Dr. Tan consult and recommendations pending Patient's pain is under control, Tylenol as needed for pain control #Coronary disease status post CABG in 2006 #History of CVA #Essential hypertension #Hyperlipidemia #Ischemic cardiomyopathy/chronic systolic congestive heart failure with EF of 50% with apical aneurysm #Mild aortic stenosis Outpatient diamond sizer and grader is Dr. Luis E Rodney Cardiology saw the patient, he underwent dobutamine stress echo on 08/08/2024 with results as follows: Normal LVH, mild concentric LVH. LVEF 50 to 55%, apical aneurysm. Basal inferior/inferior septal hypokinesis. Normal RV size and function. Mild aortic stenosis, no LV thrombus noted As per cardiology, okay to proceed with planned EGD and any other additional procedures needed regarding abdominal mass Plavix is currently on hold until biopsy obtained Continue statin Continue metoprolol beta-calli and losartan with hold parameters Monitor vital signs I/O monitoring Daily weights #Type 2 diabetes mellitus A1c 7.2 Patient on metformin at home Accu-Cheks before every meal and nightly with sliding scale insulin coverage Monitor glycemic control #Dementia Continue donezepil Supportive care from nursing staff #COPD Patient is not in any acute exacerbation Continue Anoro Ellipta and fluticasone CODE STATUS: Full code DVT prophylaxis: Patient on heparin infusion Patient may need transfer to a tertiary care center based on GI recommendations post EGD Care plan discussed with patient, nursing staff, daughter Arin Griffin ([phone]) updated on the phone. Admission and Anticipated Discharge Date Admission Date: August 07, 2024 Subjective Patient seen and examined Patient has been cleared by cardiology for procedures after dobutamine stress test was negative He denies any chest pain or shortness of breath Abdominal pain is in good control He denies any bleeding He is awaiting EGD today Physical Exam Physical Exam: General: No acute distress Psych: Awake and alert, oriented to place and person. HEENT: Anicteric sclera, moist oral mucosa CVS: Regular rate and rhythm Lungs: Bilateral air entry, no wheezing noted Abdomen: Soft, nontender, no rebound, no guarding Ext: No lower extremity edema, no calf tenderness Neuro: No focal motor deficits noted Results & Data Results & Data Vital Signs (Past 12 Hours) Vital Signs Temp Pulse Pulse Resp BP BP Pulse Ox 08/09/24 07:58 36.8 C 58 L 16 163/64 H 94 08/09/24 07:21 80 08/09/24 04:00 36.8 C 79 18 149/81 H 96 08/08/24 23:53 36.5 C 70 18 142/74 H 95 08/08/24 23:35 08/08/24 22:10 71 O2 Del Method 08/09/24 07:58 Room Air 08/09/24 07:21 08/09/24 04:00 Room Air 08/08/24 23:53 Room Air 08/08/24 23:35 Room Air 08/08/24 22:10 Laboratory Results Laboratory Results - last 24 hr 08/08/24 08/08/24 08/08/24 11:56 17:06 20:11 WBC RBC Hgb Hct MCV MCH MCHC RDW Std Deviation RDW Coeff of Fabian Plt Count MPV Heparin Anti-Xa, Unfract Sodium Potassium Chloride Carbon Dioxide Anion Gap BUN Creatinine Est Cr Clr Drug Dosing eGFR BUN/Creatinine Ratio Glucose POC Glucose 138 H 121 H 105 H Calcium Magnesium Vitamin B12 08/09/24 08/09/24 05:35 06:21 WBC 8.79 RBC 5.02 Hgb 13.1 L Hct 39.9 L MCV 79.5 L MCH 26.1 MCHC 32.8 RDW Std Deviation 43.0 RDW Coeff of Fabian 14.8 H Plt Count 258 MPV 9.2 L Heparin Anti-Xa, Unfract 0.70 Sodium 140 Potassium 3.5 Chloride 106 Carbon Dioxide 25 Anion Gap 9 BUN 13 Creatinine 0.90 Est Cr Clr Drug Dosing 73.1 eGFR 90.18 BUN/Creatinine Ratio 14.4 Glucose 131 H POC Glucose 120 H Calcium 9.0 Magnesium 1.9 Vitamin B12 518 PG Care Time/CCT Total # of Minutes Spent Total Time Spent with Patient: Total time spent is greater than 50% in coordination of care (as documented) at patient's floor/unit and/or counseling patient: Coding Level of Care Code 51244 SUB INP/OBS CARE 3/50MIN Diagnoses Abdominal mass, unspecified abdominal location R19.00 Abdominal location: unspecified location Splenic infarct D73.5 CAD (coronary artery disease) I25.10 Chronic systolic CHF (congestive heart failure) I50.22 Hypertension I10 H/O: CVA (cerebrovascular accident) Z86.73 Type 2 diabetes mellitus E11.9 COPD (chronic obstructive pulmonary disease) J44.9 Dementia F03.90 (1) Abdominal mass Abdominal location: unspecified location Qualified Code(s): R19.00 - Intra- abdominal and pelvic swelling, mass and lump, unspecified site
[2024-08-09] MEDS: CYANOCOBALAMIN 1000 MCG/ML VIAL IM SCH (10:15)
--- NOTE | 2024-08-09 10:51 | Cardiology Progress Note ---
Date of Service August 09, 2024 Assessment & Plan (1) CAD (coronary artery disease): Plan: 3vessel CABG 2006 (MENDOZA to LAD, SVG to OM, SVG to PDA) PCI SVG to PDA 2007 Patent grafts cath 2014 2. 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 Mild aortic stenosis 4. Splenic infarcts 5. Abdominal mass/inflammatory thickening at GE junction 6. Type 2 DM 7. Dementia 8. Hypertension Stable from a cardiac standpoint today. Okay to proceed with planned EGD and any other additional procedures needed regarding abdominal mass. Clopidogrel, anticoagulation on hold. Continue current toprol, losartan and atorvastatin. Can increase losartan as needed for blood pressure. Admission and Anticipated Discharge Date Admission Date: August 07, 2024 Subjective Feeling well this morning. Denies any chest pain. N.p.o. for EGD. Review of Systems Review of Systems: All systems reviewed & are unremarkable except as noted in HPI & below Physical Exam Physical Exam: General: Comfortable HEENT: Sclerae anicteric Lungs: Clear to auscultation bilaterally Cardiac: Regular rate and rhythm, no murmurs. 2/6 systolic aortic murmur Abdomen: Soft, mild tenderness left lower quadrant Extremities: Well perfused, no peripheral edema Neuro: Nonfocal Psych: Alert orient x3, normal affect and mood Results & Data Vital Signs (Past 12 Hours) Vital Signs Temp Pulse Pulse Resp BP BP Pulse Ox 08/09/24 07:58 98.2 F 58 L 16 163/64 H 94 08/09/24 07:21 80 08/09/24 04:00 98.2 F 79 18 149/81 H 96 08/08/24 23:53 97.7 F 70 18 142/74 H 95 08/08/24 23:35 O2 Del Method 08/09/24 07:58 Room Air 08/09/24 07:21 08/09/24 04:00 Room Air 08/08/24 23:53 Room Air 08/08/24 23:35 Room Air PG Care Time/CCT Total # of Minutes Spent Total Time Spent with Patient: Total time spent is greater than 50% in coordination of care (as documented) at patient's floor/unit and/or counseling patient: Coding Level of Care Code 66207 SUB INP/OBS CARE 2/35MIN Diagnoses CAD (coronary artery disease) I25.10
--- NOTE | 2024-08-09 15:08 | Anesthesiology Consultation ---
Date of Service August 09, 2024 Assessment & Plan ASA ASA3 Proposed Anesthesia Anesthesia Type: MAC Risk / Benefits Reviewed With: PT / POA / Parent / Guardian, Accepts Plan and Informed Consent Obtained History Surgery Operation Date: 08/09/24 17:35 Proposed Procedures p Esophagogastroduodenoscopy Mario Martin MD Height/Weight Height: 5 ft 9 in Weight: 76.1 kg Allergies Allergy/AdvReac Type Severity Reaction Status Date / Time ticagrelor [From Brilinta] Allergy Severe Dyspnea Verified 08/07/24 18:13 Medications Home Medications Medication Instructions Recorded Confirmed Last Taken nitroglycerin 0.4 mg sublingual 0.4 mg buccal Q5M PRN chest pain 11/17/23 08/07/24 Unknown tablet #25 tabs fluticasone fur. 100 mcg-umeclid 1 inh inhalation DAILY 30 days #60 01/13/24 08/07/24 08/06/24 62.5 mcg-vilant 25 mcg ea inhalat.powder (Trelegy Ellipta) clopidogrel 75 mg tablet (Plavix) 75 mg PO DAILY #90 tabs 04/18/24 08/07/24 08/06/24 ezetimibe 10 mg tablet (Zetia) 10 mg PO DAILY #90 tabs 04/18/24 08/07/24 08/06/24 metformin 500 mg tablet,extended 2,000 mg (4 x 500 mg) PO DAILY 90 04/18/24 08/07/24 08/06/24 release 24 hr days #360 tabs atorvastatin 80 mg tablet 80 mg PO DAILY #90 tabs 05/12/24 08/07/24 08/06/24 donepezil 10 mg tablet 10 mg PO DAILY #90 tabs 05/12/24 08/07/24 08/06/24 ferrous sulfate 325 mg (65 mg 325 mg PO DAILY #30 tabs 05/12/24 08/07/24 08/06/24 iron) tablet losartan 50 mg tablet 50 mg PO DAILY #90 tabs 05/12/24 08/07/24 08/06/24 metoprolol succinate 50 mg 50 mg PO DAILY #90 tabs 05/12/24 08/07/24 08/06/24 tablet,extended release 24 hr albuterol sulfate 90 mcg/actuation 2 puff inhalation UD PRN shortness 08/07/24 08/07/24 Unknown aerosol inhaler of breath or wheezing Active Medications Generic Name Dose Route Start Last Admin Trade Name Saiq PRN Reason Stop Dose Admin Acetaminophen 1,000 mg 08/08/24 08:00 08/09/24 08:33 Acetaminophen 500 Mg Tab PO 09/07/24 08:59 1,000 mg TID PRN Administration Pain or Fever Atorvastatin Calcium 80 mg 08/08/24 09:00 08/09/24 08:35 Atorvastatin 40 Mg Tab PO 09/07/24 08:59 80 mg DAILY IVELISSE Administration Cyanocobalamin 1,000 mcg 08/09/24 09:00 08/09/24 10:15 Cyanocobalamin 1000 Mcg/Ml Vial IM 08/10/24 08:59 1,000 mcg QAM IVELISSE Administration Donepezil HCl 10 mg 08/08/24 09:00 08/09/24 08:34 Donepezil Hcl 10 Mg Tab PO 09/07/24 08:59 10 mg DAILY IVELISSE Administration Ezetimibe 10 mg 08/08/24 09:00 08/09/24 08:34 Ezetimibe 10 Mg Tab PO 09/07/24 08:59 10 mg DAILY IVELISSE Administration Ferrous Sulfate 325 mg 08/08/24 09:00 08/09/24 08:35 Ferrous Sulfate 325 Mg Tab PO 09/07/24 08:59 325 mg DAILY IVELISSE Administration Fluticasone Furoate 1 puffs 08/08/24 09:00 08/09/24 08:35 Fluticasone Furoate 100mcg 14 Puffs/Inhaler INH 09/07/24 08:59 1 puffs DAILY IVELISSE Administration Heparin Sodium/Dextrose 25,000 units in 500 mls @ 0 mls/hr 08/07/24 19:30 08/09/24 09:41 Heparin Sodium/Dextrose IV 09/06/24 19:29 0 units/hr .Q0M IVELISSE 0 mls/hr Titration Protocol 0 UNITS/HR Insulin Aspart 0 units 08/08/24 06:00 08/09/24 12:42 Insulin Aspart Per Unit Charge SC 09/07/24 05:59 Not Given Q6 IVELISSE Losartan Potassium 50 mg 08/08/24 09:00 08/09/24 08:34 Losartan Potassium 50 Mg Tab PO 09/07/24 08:59 50 mg DAILY IVELISSE Administration Metoprolol Succinate 50 mg 08/08/24 09:00 08/09/24 08:34 Metoprolol Succ 50mg Ext Rel Tab PO 09/07/24 08:59 50 mg DAILY IVELISSE Administration Miscellaneous 1 each 08/09/24 08:00 08/09/24 08:38 Pending Order: Heparin Gtt N/A 09/08/24 07:59 1 each TODAY@0800 IVELISSE Administration Umeclidinium/Vilanterol 1 puffs 08/08/24 09:00 08/09/24 08:35 Umeclidinium/Vilanterol 62.5/25mcg 7 Puffs/Inhaler INH 09/07/24 08:59 1 puffs DAILY IVELISSE Administration NPO Date Last Intake of Fluids: 08/09/24 Time Last Intake of Fluids: 08:00 Date Last Intake of Solids: 08/08/24 Time Last Intake of Solids: 18:00 Past Medical History Medical History Intolerant of cold CAD (coronary atherosclerotic disease) History of stroke without residual deficits Hyperlipemia History of heart attack History of alcohol abuse Hx of acne No pertinent family history Exercise / Class Metabolic Activity II 4-5 Yardwork/Stairs/Walk up hill Past Family History Family History Father Heart disease, Onset Age: 50 Myocardial infarction Past Surgical History Surgical History S/P CABG (coronary artery bypass graft) History of open heart surgery Past Anesthesia History No Hx of Anesthesia Complications and No Family Hx of Anesthesia Complications History of PONV No Hx of PONV and No Hx of Motion Sickness Social History Smoking Status: Former smoker Do You Dip or Chew Tobacco: No Hx Alcohol Use: No Hx Substance Use: No Physical Exam Vital Signs Last Vital Signs Temp 36.9 C 08/09/24 14:48 Pulse 59 L 08/09/24 14:48 Resp 16 08/09/24 14:48 BP 149/84 H 08/09/24 14:48 Pulse Ox 94 08/09/24 14:48 O2 Del Method Room Air 08/09/24 14:48 Constitutional no acute distress ENMT Mouth: + dentition abnormality and + dentures (upper denture) Thyromental Distance: > or= 3.5 Finger Breadths Mallampati Class: III Neck normal visual inspection Respiratory normal respiratory effort; no respiratory distress Auscultation: lungs clear to auscultation bilaterally Cardiovascular Rate/Rhythm: regular rate and regular rhythm Heart Sounds: no murmur Musculoskeletal Spine: normal cervical ROM Psychiatric Orientation: alert; + not oriented x 3 Testing Laboratory Results 08/09/24 06:21 08/09/24 06:21 PT 10.6 Seconds (9.0-12.0) 08/07/24 15:27 INR 1.0 (0.9-1.1) 08/07/24 15: APTT 26 Seconds (21-31) 08/07/24 15:27 Hemoglobin A1c 7.2 % (4.5-5.6) H 08/08/24 01:59 Urine Color Yellow 08/07/24 17:06 Urine Appearance Clear (Clear) 08/07/24 17:06 Urine pH 5.0 (4.5-7.5) 08/07/24 17:06 Ur Specific [place] > 1.045 (1.000-1.030) H 08/07/24 17:06 Urine Protein Negative (Negative) 08/07/24 17:06 Urine Glucose (UA) Negative (Negative) 08/07/24 17:06 Urine Ketones Negative (Negative) 08/07/24 17:06 Urine Nitrite Negative (Negative) 08/07/24 17:06 Ur Leukocyte Esterase Negative (Negative) 08/07/24 17:06 08/09/24 08/09/24 12:12 05:35 POC Glucose 136 H 120 H Day of Procedure Evaluation. Date of Surgery August 09, 2024 Height/Weight Height: 5 ft 9 in Weight: 76.1 kg Vital Signs Last Vital Signs Temp 36.9 C 08/09/24 14:48 Pulse 59 L 08/09/24 14:48 Resp 16 08/09/24 14:48 BP 149/84 H 08/09/24 14:48 Pulse Ox 94 08/09/24 14:48 O2 Del Method Room Air 08/09/24 14:48 Allergies Allergy/AdvReac Type Severity Reaction Status Date / Time ticagrelor [From Brilinta] Allergy Severe Dyspnea Verified 08/07/24 18:13 Medications Home Medications Medication Instructions Recorded Confirmed Last Taken nitroglycerin 0.4 mg sublingual 0.4 mg buccal Q5M PRN chest pain 11/17/23 08/07/24 Unknown tablet #25 tabs fluticasone fur. 100 mcg-umeclid 1 inh inhalation DAILY 30 days #60 01/13/24 08/07/24 08/06/24 62.5 mcg-vilant 25 mcg ea inhalat.powder (Trelegy Ellipta) clopidogrel 75 mg tablet (Plavix) 75 mg PO DAILY #90 tabs 04/18/24 08/07/24 08/06/24 ezetimibe 10 mg tablet (Zetia) 10 mg PO DAILY #90 tabs 04/18/24 08/07/24 08/06/24 metformin 500 mg tablet,extended 2,000 mg (4 x 500 mg) PO DAILY 90 04/18/24 08/07/24 08/06/24 release 24 hr days #360 tabs atorvastatin 80 mg tablet 80 mg PO DAILY #90 tabs 05/12/24 08/07/24 08/06/24 donepezil 10 mg tablet 10 mg PO DAILY #90 tabs 05/12/24 08/07/24 08/06/24 ferrous sulfate 325 mg (65 mg 325 mg PO DAILY #30 tabs 05/12/24 08/07/24 08/06/24 iron) tablet losartan 50 mg tablet 50 mg PO DAILY #90 tabs 05/12/24 08/07/24 08/06/24 metoprolol succinate 50 mg 50 mg PO DAILY #90 tabs 05/12/24 08/07/24 08/06/24 tablet,extended release 24 hr albuterol sulfate 90 mcg/actuation 2 puff inhalation UD PRN shortness 08/07/24 08/07/24 Unknown aerosol inhaler of breath or wheezing Active Medications Generic Name Dose Route Start Last Admin Trade Name Freq PRN Reason Stop Dose Admin Acetaminophen 1,000 mg 08/08/24 08:00 08/09/24 08:33 Acetaminophen 500 Mg Tab PO 09/07/24 08:59 1,000 mg TID PRN Administration Pain or Fever Atorvastatin Calcium 80 mg 08/08/24 09:00 08/09/24 08:35 Atorvastatin 40 Mg Tab PO 09/07/24 08:59 80 mg DAILY IVELISSE Administration Cyanocobalamin 1,000 mcg 08/09/24 09:00 08/09/24 10:15 Cyanocobalamin 1000 Mcg/Ml Vial IM 08/10/24 08:59 1,000 mcg QAM IVELISSE Administration Donepezil HCl 10 mg 08/08/24 09:00 08/09/24 08:34 Donepezil Hcl 10 Mg Tab PO 09/07/24 08:59 10 mg DAILY IVELISSE Administration Ezetimibe 10 mg 08/08/24 09:00 08/09/24 08:34 Ezetimibe 10 Mg Tab PO 09/07/24 08:59 10 mg DAILY IVELISSE Administration Ferrous Sulfate 325 mg 08/08/24 09:00 08/09/24 08:35 Ferrous Sulfate 325 Mg Tab PO 09/07/24 08:59 325 mg DAILY IVELISSE Administration Fluticasone Furoate 1 puffs 08/08/24 09:00 08/09/24 08:35 Fluticasone Furoate 100mcg 14 Puffs/Inhaler INH 09/07/24 08:59 1 puffs DAILY IVELISSE Administration Heparin Sodium/Dextrose 25,000 units in 500 mls @ 0 mls/hr 08/07/24 19:30 08/09/24 09:41 Heparin Sodium/Dextrose IV 09/06/24 19:29 0 units/hr .Q0M IVELISSE 0 mls/hr Titration Protocol 0 UNITS/HR Insulin Aspart 0 units 08/08/24 06:00 08/09/24 12:42 Insulin Aspart Per Unit Charge SC 09/07/24 05:59 Not Given Q6 IVELISSE Losartan Potassium 50 mg 08/08/24 09:00 08/09/24 08:34 Losartan Potassium 50 Mg Tab PO 09/07/24 08:59 50 mg DAILY IVELISSE Administration Metoprolol Succinate 50 mg 08/08/24 09:00 08/09/24 08:34 Metoprolol Succ 50mg Ext Rel Tab PO 09/07/24 08:59 50 mg DAILY IVELISSE Administration Miscellaneous 1 each 08/09/24 08:00 08/09/24 08:38 Pending Order: Heparin Gtt N/A 09/08/24 07:59 1 each TODAY@0800 IVELISSE Administration Umeclidinium/Vilanterol 1 puffs 08/08/24 09:00 08/09/24 08:35 Umeclidinium/Vilanterol 62.5/25mcg 7 Puffs/Inhaler INH 09/07/24 08:59 1 puffs DAILY IVELISSE Administration Past Anesthesia History No Hx of Anesthesia Complications and No Family Hx of Anesthesia Complications History of PONV No Hx of PONV and No Hx of Motion Sickness NPO Date Last Intake of Fluids: 08/09/24 Time Last Intake of Fluids: 08:00 Date Last Intake of Solids: 08/08/24 Time Last Intake of Solids: 18:00 HCG & FBG Results 08/09/24 08/09/24 12:12 05:35 POC Glucose 136 H 120 H Home Medications Home Medications Medication Instructions Recorded Confirmed Last Taken nitroglycerin 0.4 mg sublingual 0.4 mg buccal Q5M PRN chest pain 11/17/23 08/07/24 Unknown tablet #25 tabs fluticasone fur. 100 mcg-umeclid 1 inh inhalation DAILY 30 days #60 01/13/24 08/07/24 08/06/24 62.5 mcg-vilant 25 mcg ea inhalat.powder (Trelegy Ellipta) clopidogrel 75 mg tablet (Plavix) 75 mg PO DAILY #90 tabs 04/18/24 08/07/24 08/06/24 ezetimibe 10 mg tablet (Zetia) 10 mg PO DAILY #90 tabs 04/18/24 08/07/24 08/06/24 metformin 500 mg tablet,extended 2,000 mg (4 x 500 mg) PO DAILY 90 04/18/24 08/07/24 08/06/24 release 24 hr days #360 tabs atorvastatin 80 mg tablet 80 mg PO DAILY #90 tabs 05/12/24 08/07/24 08/06/24 donepezil 10 mg tablet 10 mg PO DAILY #90 tabs 05/12/24 08/07/24 08/06/24 ferrous sulfate 325 mg (65 mg 325 mg PO DAILY #30 tabs 05/12/24 08/07/24 08/06/24 iron) tablet losartan 50 mg tablet 50 mg PO DAILY #90 tabs 05/12/24 08/07/24 08/06/24 metoprolol succinate 50 mg 50 mg PO DAILY #90 tabs 05/12/24 08/07/24 08/06/24 tablet,extended release 24 hr albuterol sulfate 90 mcg/actuation 2 puff inhalation UD PRN shortness 08/07/24 08/07/24 Unknown aerosol inhaler of breath or wheezing Active Medications Generic Name Dose Route Start Last Admin Trade Name Raymond PRN Reason Stop Dose Admin Acetaminophen 1,000 mg 08/08/24 08:00 08/09/24 08:33 Acetaminophen 500 Mg Tab PO 09/07/24 08:59 1,000 mg TID PRN Administration Pain or Fever Atorvastatin Calcium 80 mg 08/08/24 09:00 08/09/24 08:35 Atorvastatin 40 Mg Tab PO 09/07/24 08:59 80 mg DAILY IVELISSE Administration Cyanocobalamin 1,000 mcg 08/09/24 09:00 08/09/24 10:15 Cyanocobalamin 1000 Mcg/Ml Vial IM 08/10/24 08:59 1,000 mcg QAM IVELISSE Administration Donepezil HCl 10 mg 08/08/24 09:00 08/09/24 08:34 Donepezil Hcl 10 Mg Tab PO 09/07/24 08:59 10 mg DAILY IVELISSE Administration Ezetimibe 10 mg 08/08/24 09:00 08/09/24 08:34 Ezetimibe 10 Mg Tab PO 09/07/24 08:59 10 mg DAILY IVELISSE Administration Ferrous Sulfate 325 mg 08/08/24 09:00 08/09/24 08:35 Ferrous Sulfate 325 Mg Tab PO 09/07/24 08:59 325 mg DAILY IVELISSE Administration Fluticasone Furoate 1 puffs 08/08/24 09:00 08/09/24 08:35 Fluticasone Furoate 100mcg 14 Puffs/Inhaler INH 09/07/24 08:59 1 puffs DAILY IVELISSE Administration Heparin Sodium/Dextrose 25,000 units in 500 mls @ 0 mls/hr 08/07/24 19:30 08/09/24 09:41 Heparin Sodium/Dextrose IV 09/06/24 19:29 0 units/hr .Q0M IVELISSE 0 mls/hr Titration Protocol 0 UNITS/HR Insulin Aspart 0 units 08/08/24 06:00 08/09/24 12:42 Insulin Aspart Per Unit Charge SC 09/07/24 05:59 Not Given Q6 IVELISSE Losartan Potassium 50 mg 08/08/24 09:00 08/09/24 08:34 Losartan Potassium 50 Mg Tab PO 09/07/24 08:59 50 mg DAILY IVELISSE Administration Metoprolol Succinate 50 mg 08/08/24 09:00 08/09/24 08:34 Metoprolol Succ 50mg Ext Rel Tab PO 09/07/24 08:59 50 mg DAILY IVELISSE Administration Miscellaneous 1 each 08/09/24 08:00 08/09/24 08:38 Pending Order: Heparin Gtt N/A 09/08/24 07:59 1 each TODAY@0800 IVELISSE Administration Umeclidinium/Vilanterol 1 puffs 08/08/24 09:00 08/09/24 08:35 Umeclidinium/Vilanterol 62.5/25mcg 7 Puffs/Inhaler INH 09/07/24 08:59 1 puffs DAILY IVELISSE Administration Exercise / Class Metabolic Activity Metabolic Activity: II 4-5 Yardwork/Stairs/Walk up hill Physical Exam Constitutional: no acute distress Mouth: + dentition abnormality and + dentures (upper denture) Thyromental Distance: > or= 3.5 Finger Breadths Mallampati Class: III Neck: + visual inspection normal Respiratory: + respiratory effort normal and + clear to auscultation bilaterally; no respiratory distress Cardiovascular: + regular rate and + regular rhythm; no murmur Musculoskeletal: no limited cervical ROM Psychiatric: + alert; no oriented x 3 ASA ASA3 Proposed Anesthesia Proposed Anesthesia: MAC Risk / Benefits Reviewed With: PT / POA / Parent / Guardian, Accepts Plan and Informed Consent Obtained Additional Comments: Pt with dementia... consent obtained from his daughter Arin Grififn via telephone.
--- NOTE | 2024-08-09 15:30 | GI REPORT ---
[facility] Patient: ZEE CHOWDARY : 1950 Sex at : Male Age: 74 Years Procedure: Upper GI endoscopy Date: 08/09/2024 Attending Physician: James Martin MD Referring MD: Referred Self; Leo Burger MD Indications: - Abnormal CT scan Medications: - Monitored Anesthesia Care Complications: - No immediate complications. Estimated Blood Loss: - Estimated blood loss was minimal. Procedure: - ASA Grade Assessment: III - A patient with severe systemic disease. - The egd scope was introduced through the mouth and advanced to the second part of the duodenum. - The upper GI endoscopy was accomplished without difficulty. - The patient tolerated the procedure well. Findings: - A large, fungating mass was found at the gastroesophageal junction. The mass was partially obstructing and circumferential. Biopsies were taken with a cold forceps for histology. For hemostasis, two applications of hemostatic spray were used. - The entire examined stomach was normal. - The examined duodenum was normal. 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 Biopsied. Hemostatic spray applied. - Normal stomach. - Normal examined duodenum. Recommendation: Procedure Code(s): - 09456-06, Esophagogastroduodenoscopy, flexible, transoral; with control of bleeding, any method - 79010, Esophagogastroduodenoscopy, flexible, transoral; with biopsy, single or multiple Diagnosis Code(s): - D49.0, Neoplasm of unspecified behavior of digestive system CPT(R) - 2023 copyright [employer]. All Rights Reserved. The CPT codes, CCI edits and ICD codes generated are intended as suggestions and were generated based on input data. These codes are preliminary and upon personnel clerk review may be revised to meet current compliance and payer requirements. The provider is responsible for the final determination of appropriate codes, and modifiers. James Martin MD This document has been electronically signed. Note Initiated:08/09/2024 Note Completed:08/09/2024 3:29 PM \\[facility] [email or web address]\Central\[email or web address]\Data\Provation\Results\LIVE\[id number]
--- NOTE | 2024-08-09 15:31 | Communication Note ---
Date of Service: August 09, 2024 POST PROCEDURE NOTE: See Provation note for complete report. Summary: Partially obstructing esophageal mass at GE junction extending from 37-40 cm from lip line. Appeared malignant Biopsied and then area hemosprayed to try to prevent bleeding. Rec: Oncology Consult Patient will likely bleed from biopsies on anticoagulation and endoscopic interventions to stop malignant bleeding are usually futile. His splenic infarcts are likely from a hypercoaguable state from malignancy and would seek Oncology guidance. He also will have difficulty swallowing solid food so would keep on liquid diet and ultimately depending on therapy may need an esophageal stent (a procedure that I do not perform).
--- NOTE | 2024-08-09 15:40 | Anesthesiology Progress Note ---
Date of Service August 09, 2024 Anesthesia Post Procedure Vital Signs Vital Signs: Temp Pulse Pulse Resp BP BP Pulse Ox 08/09/24 15:28 69 16 94/61 L 96 08/09/24 14:48 64 08/09/24 14:48 36.9 C 59 L 16 149/84 H 94 08/09/24 11:57 36.3 C L 63 16 149/79 H 95 08/09/24 07:58 36.8 C 58 L 16 163/64 H 94 08/09/24 07:21 80 08/09/24 04:00 36.8 C 79 18 149/81 H 96 08/08/24 23:53 36.5 C 70 18 142/74 H 95 08/08/24 23:35 08/08/24 22:10 71 08/08/24 19:00 36.6 C 59 L 18 164/81 H 96 08/08/24 16:10 63 O2 Del Method 08/09/24 15:28 Room Air 08/09/24 14:48 08/09/24 14:48 Room Air 08/09/24 11:57 Room Air 08/09/24 07:58 Room Air 08/09/24 07:21 08/09/24 04:00 Room Air 08/08/24 23:53 Room Air 08/08/24 23:35 Room Air 08/08/24 22:10 08/08/24 19:00 Room Air 08/08/24 16:10 Transfer of Care Handoff Completed per policy Notes Mental Status: alert / awake / arousable and participated in evaluation Nausea / Vomiting: adequately controlled Pain: adequately controlled Airway Patency, RR, SpO2: stable & adequate BP & HR: stable & adequate Hydration State: stable & adequate Anesthetic Complications: no major complications apparent and Pt Satisfied with anesthetic care
[2024-08-09] MEDS: PROPOFOL IV EMULSION 10 MG/ML 20 ML VIAL IV ONE (17:05)
[2024-08-09] MEDS: LIDOCAINE 2% 2 ML VIAL/AMP(20MG/ML) INFIL ONE (17:05)
[2024-08-09] MEDS: SODIUM CHLORIDE 0.9% 500 ML IV SCH (17:05)
[2024-08-09] MEDS ORDERED: Nursing to Pharmacy Communication SCH (21:15)
[2024-08-10 07:25] LABS: Hemoglobin 13.1 g/dl (14.0-18.0); Mean Corpuscular Hemoglobin 26.3 pg (25.0-34.0); Mean Corpuscular Hgb Conc 32.8 g/dL (32.0-36.0); Mean Corpuscular Volume 80.2 fL (80.0-100.0); Mean Platelet Volume 9.1 fL (9.4-12.4); Platelet Count 248 K/uL (130-400); RDW Coefficient of Variation 15.4 % (11.5-14.5); RDW Standard Deviation 44.6 fL (36.4-46.3); Red Blood Count 4.99 M/uL (4.70-6.10)
[2024-08-10 07:42] LABS: Albumin Globulin Ratio 1.3 (0.9-2); Albumin Level 3.7 gm/dl (3.4-5.0); BUN Creatinine Ratio 14.6 (10-20); Calcium 9.1 mg/dl (8.6-10.3); Creatinine Clr Calc Pharmacy 68.5 ml/min; Globulin 2.9 gm/dl (2.5-4.0); Magnesium 1.9 mg/dl (1.7-2.4); Potassium 3.9 mmol/L (3.5-5.1); Total Protein 6.6 gm/dl (6.0-8.3)
[2024-08-10 07:51] LABS: ANTI-Xa, UFH(UnfractionatedHep < 0.10 IU/ml (0.3-0.7)
--- NOTE | 2024-08-10 08:01 | Communication Note ---
Date of Service: August 10, 2024 Patient chart reviewed, GI was able to bx partially obstructing esophageal mass at GE junction, which they thought appeared malignant. Agree with oncology consult. Diet recommendations per GI is to keep pt on liquids. Patient will need to meet with a surgeon at a tertiary center for surgical recommendations and also follow oncology recs. General surgery will sign off at time, call with questions /concerns.
[2024-08-10] MEDS: VITAMIN B COMPLEX TAB PO SCH (08:28)
--- NOTE | 2024-08-10 08:50 | Gastroenterology Progress Note ---
<Statement entered by James Martin MD - 08/10/24 13:30> Patient seen and examined. Case discussed with Lanie BAE. Esophageal tumor. Oncology following. If anticoagulation needed - can cautiously try now that 24 hrs post biopsy although still a risk as the tumor bled even with passage of the scope. IP GI Service will sign off. Defer to oncology and if esophageal stent needed - advanced endoscopy will need to be consulted. Date of Service August 10, 2024 Assessment & Plan (1) Abdominal mass: Plan: 74 year old male wit history of CAD s/p CABG, ischemic cardiomyopathy, dementia, DM, CHF, COPD and others below admitted through the ED w/ abnormal imaging showing a mass abutting the stomach concerning for necrotic lymph node with surrounding subcentimeter nodes, likely malignancy of unknown origin. 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 Oncology consultation. Liquid diet only. Avoid AC. Recall GI as needed. Thank you for allowing us to participate in the care of this patient. Please call with any acute changes, questions or concerns. Please see addendum below with additional recommendation from my supervising physician. Admission and Anticipated Discharge Date Admission Date: August 07, 2024 Subjective Pt was seen and evaluated, chart reviewed. Notes intermittent left sided pain with deep breathing. This is the same pain that brought him to the ED. Tolerating clear liquids. Denies nausea/vomiting. 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 Biopsied. Hemostatic spray applied. - Normal stomach. - Normal examined duodenum. Review of Systems Review of Systems: All other findings negative except as noted in HPI. Physical Exam Constitutional: WD/WN, vitals as above Respiratory: normal respiratory effort, lungs clear to auscultation Cardiovascular: Rate/Rhythm: regular rate and regular rhythm Gastrointestinal (Abdomen): normal bowel sounds, soft, nontender, no hepatosplenomegaly Skin: no rashes, warm and dry Results & Data Results & Data Vital Signs (Past 12 Hours) Vital Signs Temp Pulse Pulse Resp BP BP Pulse Ox 08/10/24 07:45 36.9 C 72 16 107/69 92 08/10/24 07:07 73 08/10/24 03:54 36.6 C 77 16 111/71 93 10/09/24 23:27 36.7 C 68 16 143/67 H 95 08/09/24 21:43 63 O2 Del Method 08/10/24 07:45 Room Air 08/10/24 07:07 08/10/24 03:54 Room Air 08/09/24 23:27 Room Air 08/09/24 21:43 Laboratory Results 08/10/24 08/10/24 08/09/24 Range/Units 07:59 07:04 21:34 WBC 8.30 (4.8-10.8) K/ul RBC 4.99 (4.70-6.10) M/uL Hgb 13.1 L (14.0-18.0) g/dl Hct 40.0 L (42.0-52.0) % MCV 80.2 (80.0-100.0) fL MCH 26.3 (25.0-34.0) pg MCHC 32.8 (32.0-36.0) g/dL RDW Std Deviation 44.6 (36.4-46.3) fL RDW Coeff of Fabian 15.4 H (11.5-14.5) % Plt Count 248 (130-400) K/uL MPV 9.1 L (9.4-12.4) fL Heparin Anti-Xa, Unfract < 0.10 L (0.3-0.7) IU/ml Sodium 141 (136-145) mmol/L Potassium 3.9 (3.5-5.1) mmol/L Chloride 110 H (98-107) mmol/L Carbon Dioxide 22 (21-32) mmol/L Anion Gap 9 (3-11) BUN 14 (6-23) mg/dl Creatinine 0.96 (0.6-1.4) mg/dl Est Cr Clr Drug Dosing 68.5 ml/min eGFR 83.46 BUN/Creatinine Ratio 14.6 (10-20) Glucose 114 H (70-99(Fasting)) mg/dl POC Glucose 114 H 99 (70-99) mg/dl Calcium 9.1 (8.6-10.3) mg/dl Magnesium 1.9 (1.7-2.4) mg/dl Total Bilirubin 1.0 (0.2-1.0) mg/dl AST 12 L (13-39) U/L ALT 10 (7-52) U/L Alkaline Phosphatase 117 H (34-104) U/L Total Protein 6.6 (6.0-8.3) gm/dl Albumin 3.7 (3.4-5.0) gm/dl Globulin 2.9 (2.5-4.0) gm/dl Albumin/Globulin Ratio 1.3 (0.9-2) 08/09/24 08/09/24 Range/Units 18:18 12:12 WBC (4.8-10.8) K/ul RBC (4.70-6.10) M/uL Hgb (14.0-18.0) g/dl Hct (42.0-52.0) % MCV (80.0-100.0) fL MCH (25.0-34.0) pg MCHC (32.0-36.0) g/dL RDW Std Deviation (36.4-46.3) fL RDW Coeff of Fabian (11.5-14.5) % Plt Count (130-400) K/uL MPV (9.4-12.4) fL Heparin Anti-Xa, Unfract (0.3-0.7) IU/ml Sodium (136-145) mmol/L Potassium (3.5-5.1) mmol/L Chloride (98-107) mmol/L Carbon Dioxide (21-32) mmol/L Anion Gap (3-11) BUN (6-23) mg/dl Creatinine (0.6-1.4) mg/dl Est Cr Clr Drug Dosing ml/min eGFR BUN/Creatinine Ratio (10-20) Glucose (70-99(Fasting)) mg/dl POC Glucose 108 H 136 H (70-99) mg/dl Calcium (8.6-10.3) mg/dl Magnesium (1.7-2.4) mg/dl Total Bilirubin (0.2-1.0) mg/dl AST (13-39) U/L ALT (7-52) U/L Alkaline Phosphatase (34-104) U/L Total Protein (6.0-8.3) gm/dl Albumin (3.4-5.0) gm/dl Globulin (2.5-4.0) gm/dl Albumin/Globulin Ratio (0.9-2) PG Care Time/CCT Total # of Minutes Spent Total Time Spent with Patient: Total time spent is greater than 50% in coordination of care (as documented) at patient's floor/unit and/or counseling patient: Coding Level of Care Code 37020 SUB INP/OBS CARE 1/25MIN Diagnoses Abdominal mass, unspecified abdominal location R19.00 Abdominal location: unspecified location (1) Abdominal mass Abdominal location: unspecified location Qualified Code(s): R19.00 - Intra- abdominal and pelvic swelling, mass and lump, unspecified site
[2024-08-10] MEDS: INSULIN ASPART PER UNIT CHARGE SC SCH (09:11)
[2024-08-10] MEDS: traMADol HCL 50 MG TABLET PO PRN (10:01)
--- NOTE | 2024-08-10 11:11 | Hospitalist Progress Note ---
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 tumor was found at the gastroesophageal junction was biopsied and then treated w/ Hemospray - CT abdomen pelvis on admission showed mass abutting the stomach concerning for necrotic lymph node with surrounding subcentimeter nodes, likely malignancy of unknown origin and also findings concerning for splenic infarcts - was on heparin infusion prior to EGD for splenic infarct - since discontinued given biopsy of esophageal mass with tendency to bleed - general surgery and GI consulted, signed off at this time - Oncology consulted-appreciate recommendations -Pathology now shows undifferentiated adenocarcinoma-further studies pending - Tylenol and added tramadol prn for pain control - high risk of bleed from biopsies with anticoagulation and endoscopic interventions to stop malignant bleeding are usually futile as per GI-hold anticoagulation and Plavix - Liquid diet only - advanced from clears to fulls, tolerated well - as per GI: ultimately depending on therapy may need an esophageal stent-this would need to be performed with advanced endoscopist and could be done as an outpatient - speech therapy consulted -no issues from a swallowing standpoint-defer to GI for diet given esophageal mass -Needs close outpatient follow-up with oncology with PET scan and then will likely need chemotherapy (2) Splenic infarct: Plan: Seen on CT abd pelvis on admission and is the cause of his left-sided abdominal pain - was on heparin infusion prior to EGD, since discontinued - likely from hypercoagulable state from malignancy - will need oncology follow up outpatient -Heparin discontinued to prevent bleeding from esophageal mass after biopsy- defer further anticoagulation at this point given high risk of bleeding (3) CAD (coronary artery disease): Plan: 3vessel CABG 2006 (MENDOZA to LAD, SVG to OM, SVG to PDA), PCI SVG to PDA 2007, with patent grafts on cath 2015s/p CABG in 2006 Hx CVA, HLD, Mild aortic stenosis - Outpatient digital marketing coordinator is Dr. Luis E Rodney - Cardiology consulted, cleared for EGD - dobutamine stress echo on 08/08/2024 - Normal LVH, mild concentric LVH. LVEF 50 to 55%, apical aneurysm. Basal inferior/inferior septal hypokinesis. Normal RV size and function. Mild aortic stenosis, no LV thrombus noted - recent lipid panel mildly high triglycerides, LDL and HDL WNL - hold Plavix given recent esophageal mass biopsies-will discuss with cardiology how long would be safe to hold this medication, however he is quite some ways out from his PCI and risk of bleeding is high right now - Continue statin and Zetia (4) Chronic systolic CHF (congestive heart failure): Plan: HF preserved EF Ischemic cardiomyopathy/chronic systolic congestive heart failure with EF of 50% with apical aneurysm - Dry weight ~ 77 kg - Strict I&O monitoring - Daily weights - SCDs, promote leg elevation, and frequent movement (5) Hypertension: Plan: Stable - continue losartan and metoprolol (6) Type 2 diabetes mellitus: Plan: Hx T2DM controlled with Metformin - currently held - A1c 7.2 - Goal BSG Range: Low 110 mg/dL, High 140 mg/dL - Correction Factor = 45 mg/dL/unit - Carbohydrate ratio = 20 g/unit - BSGs ACHS - Monitor glycemic control (7) COPD (chronic obstructive pulmonary disease): Plan: - Patient is not in any acute exacerbation - Continue Anoro Ellipta and fluticasone - non-hypoxic (8) Dementia: Plan: - Continue donezepil - Supportive care from nursing staff Plan Chronic stable diagnoses: Iron deficiency anemia - CBC showing microcytic anemia, likely secondary to esophageal adenocarcinoma-continue home iron supplement VTE ppx: SCDs; heparin discontinued Diet: Full liquid Dispo: Med/tele Possible discharge 08/11. Will need out patient follow up with oncology. He is on a liquid diet, still having abdominal pain, and high bleeding risk - continue to monitor. Admission and Anticipated Discharge Date Admission Date: August 07, 2024 Supervising Physician Co-Signing Physician Notes RAPHAEL Supervision Note: I personally saw and examined the patient. I verified all salazar points and agree with RAPHAEL Patel with the following exceptions and/or additions: S-patient reports pain is controlled now with tramadol. 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 He is hungry with only being on clear liquid diet, going to advance to full liquid for lunch. He has 5/10 abdominal pain in his LUQ. He had a bowel movement yesterday, denies melena or bloody stools. Patient denies fever, chills, dizziness, lightheadedness, dyspnea, chest pain, nausea, vomiting, diarrhea, constipation, edema, numbness, tingling. Patient tolerate full liquid diet well. Complaining of lightheadedness he feels is due to diet, boost protein drinks ordered BID. Updated patient's family at bedside. Tele: Sinus bradycardia, HR 50-60s, occasional PAC. Review of Systems Review of Systems: As per HPI Physical Exam Physical Exam: The patient is awake, alert and oriented 3, well developed and well nourished, normocephalic and atraumatic, in no acute distress. Non-toxic appearing. HEENT- EOMI, mucous membranes moist. Hearing grossly intact. Heart-normal S1 and S2. No murmurs, rubs or gallops. Lungs-clear bilaterally, no respiratory distress, no accessory muscle use. Abdomen-normal bowel sounds and soft. No ascites noted. Non-tender to all quadrants. No ecchymosis noted. Extremities- no clubbing, cyanosis, or edema. Rheumatologic-normal range of motion. Psychiatric-normal affect. Results & Data Results & Data Vital Signs (Past 12 Hours) Vital Signs Temp Pulse Pulse Resp BP BP Pulse Ox 08/10/24 07:45 36.9 C 72 16 107/69 92 08/10/24 07:07 73 08/10/24 03:54 36.6 C 77 16 111/71 93 08/09/24 23:27 36.7 C 68 16 143/67 H 95 O2 Del Method 08/10/24 07:45 Room Air 08/10/24 07:07 08/10/24 03:54 Room Air 08/09/24 23:27 Room Air Laboratory Results reviewed CBC, CMP, Mg PG Care Time/CCT Total # of Minutes Spent Total Time Spent with Patient: Total time spent is greater than 50% in coordination of care (as documented) at patient's floor/unit and/or counseling patient: Coding Level of Care Code None Diagnoses Adenocarcinoma C80.1 Splenic infarct D73.5 CAD (coronary artery disease) I25.10 Chronic systolic CHF (congestive heart failure) I50.22 Hypertension I10 Type 2 diabetes mellitus E11.9 COPD (chronic obstructive pulmonary disease) J44.9 Dementia F03.90
--- NOTE | 2024-08-10 21:24 | Billing Data ---
Date of Service August 10, 2024 Coding Level of Care Code 39474 SUB INP/OBS CARE MIN
[2024-08-10] MEDS: MELATONIN 3 MG TAB PO PRN (22:05)
[2024-08-11 07:18] LABS: BUN Creatinine Ratio 14.3 (10-20); Calcium 9.3 mg/dl (8.6-10.3); Creatinine Clr Calc Pharmacy 62.7 ml/min; Potassium 4.1 mmol/L (3.5-5.1)
[2024-08-11 07:24] LABS: Hematocrit (blood only) 38.4 % (42.0-52.0); Hemoglobin 12.3 g/dl (14.0-18.0); Mean Corpuscular Hemoglobin 25.7 pg (25.0-34.0); Mean Corpuscular Volume 80.3 fL (80.0-100.0); Mean Platelet Volume 9.4 fL (9.4-12.4); Platelet Count 251 K/uL (130-400); RDW Coefficient of Variation 15.2 % (11.5-14.5); RDW Standard Deviation 44.7 fL (36.4-46.3); Red Blood Count 4.78 M/uL (4.70-6.10); White Blood Count 7.61 K/ul (4.8-10.8)
--- NOTE | 2024-08-11 09:48 | Discharge Summary ---
Discharge Summary Date of Service August 11, 2024 Principal Dx & Hospital Course #1 = Principal Diagnosis (1) Adenocarcinoma: S/P EGD 08/09 with a partially obstructing, likely malignant esophageal tumor was found at the gastroesophageal junction was biopsied and then treated w/ Hemospray - CT abdomen pelvis on admission showed mass abutting the stomach concerning for necrotic lymph node with surrounding subcentimeter nodes, likely malignancy of unknown origin and also findings concerning for splenic infarcts - was on heparin infusion prior to EGD for splenic infarct - since discontinued given biopsy of esophageal mass with tendency to bleed - general surgery and GI consulted, signed off at this time - Oncology consulted - appreciate recommendations - Pathology now shows undifferentiated adenocarcinoma - further studies pending - Tylenol and added tramadol prn for pain control - high risk of bleed from biopsies with anticoagulation and endoscopic interventions to stop malignant bleeding are usually futile as per GI-hold anticoagulation and Plavix - Full liquid diet only - tolerated well - as per GI: ultimately depending on therapy may need an esophageal stent - this would need to be performed with advanced endoscopist and could be done as an outpatient - continue Boost supplement shakes and vitamin B complex on discharge -monitor weight, CBC, CMP as outpt - speech therapy consulted - no issues from a swallowing standpoint - defer to GI for diet given esophageal mass - Needs close outpatient follow-up with oncology with PET scan and then will likely need chemotherapy (2) Splenic infarct: Seen on CT abd pelvis on admission and is the cause of his left-sided abdominal pain - was on heparin infusion prior to EGD, since discontinued - likely from hypercoagulable state from malignancy - will need oncology follow up outpatient - Heparin discontinued to prevent bleeding from esophageal mass after biopsy - defer further anticoagulation at this point given high risk of bleeding (3) CAD (coronary artery disease): 3vessel CABG 2006 (MENDOZA to LAD, SVG to OM, SVG to PDA), PCI SVG to PDA 2007, with patent grafts on cath 2015s/p CABG in 2006 Hx CVA, HLD, Mild aortic stenosis - Outpatient java tech lead is Dr. Luis E Rodney - Cardiology consulted, cleared for EGD - dobutamine stress echo on 08/08/2024 - Normal LVH, mild concentric LVH. LVEF 50 to 55%, apical aneurysm. Basal inferior/inferior septal hypokinesis. Normal RV size and function. Mild aortic stenosis, no LV thrombus noted - recent lipid panel mildly high triglycerides, LDL and HDL WNL - hold Plavix given recent esophageal mass biopsies - discussed with Dr. 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 - Dry weight ~ 77 kg - Strict I&O monitoring - Daily weights - SCDs, promote leg elevation, and frequent movement (5) Hypertension: Stable - continue losartan and metoprolol (6) Type 2 diabetes mellitus: Hx T2DM controlled with Metformin - can continue on discharge - A1c 7.2 (7) COPD (chronic obstructive pulmonary disease): - Patient is not in any acute exacerbation - Continue Anoro Ellipta and fluticasone - non-hypoxic (8) Dementia: - Mild, Continue donezepil - Supportive care from nursing staff Plan Chronic stable diagnoses: Iron deficiency anemia - CBC showing microcytic anemia, likely secondary to esophageal adenocarcinoma - continue home iron supplement , follow CBC as outpt VTE ppx: SCDs; heparin discontinued Diet: Full liquid Dispo: Discharge home on full liquid diet with oncology follow up. Tele: Sinus with occasional PAC and PVC. Rate 50-60. Notes For Next Care Provider Monitor CBC, CMP, Magnesium as outpt while on full liquids diet Needs close outpt f/u with Oncology and PET scan If has signs/symptoms of worsening esophageal obstruction, would need esophageal stent evaluation by Advanced Endoscopist Medication Changes From Visit Discontinue plavix Added tramadol Admission HPI Per Admitting Provider Ottoniel Trevinopoppy is a 74 year old male who presents to the ER with left sided abdominal pain. When seen in the ER it has mostly resolved at this time. Symptoms ongoing for the last 2-3 days getting progressively worse. Using pain medications, famotidine without any effect therefore decided to come to the ER today. No radiation. Worse on deep inspiration. Eating does not make it worse. No change in bowels, nausea, vomiting, hematochezia or melena. He has never had a pain like this before. No prior history of cancer. Of note he has also been having intermittent chest pains, none currently and is due to stress test organized by his java tech lead later this week. He denies any current chest pain or shortness of breath. Admission Exam Per Admitting Provider Constitutional: WD/WN, vitals as above ENMT: external ear and nose normal, oropharynx normal Respiratory: normal respiratory effort, lungs clear to auscultation Cardiovascular: RRR, no murmur, no edema Gastrointestinal (Abdomen): normal bowel sounds, soft, nontender, no hepatosplenomegaly Musculoskeletal: no cyanosis or clubbing, extremities motor strength 5/5 Skin: no rashes, warm and dry Neurologic: moves all extremities and awake; not confused Psychiatric: A+Ox3, euthymic affect Discharge Exam The patient is awake, alert and oriented 3, well developed and well nourished, normocephalic and atraumatic, in no acute distress. Non-toxic appearing. HEENT- EOMI, mucous membranes moist. Hearing grossly intact. Heart-normal S1 and S2. No murmurs, rubs or gallops. Lungs-clear bilaterally, no respiratory distress, no accessory muscle use. Abdomen-normal bowel sounds and soft. No ascites noted. Non-tender to all quadrants. No ecchymosis noted. Extremities- no clubbing, cyanosis, or edema. Rheumatologic-normal range of motion. Psychiatric-normal affect. Discharge Plan Discharge Items Patient Disposition: Home - Self-Care Reason For Visit: SPLENIC INFARCT, ABDOMINAL MASS Discharge Diagnosis: 1. Adenocarcinoma of esophagus 2. Splenic infarct Activity: As commented below Lifting: Gradually increase as tolerated Exercise/Sports: Gradually increase as tolerated Non-emergency contact: Primary Care Provider and Oncologist Call non-emergency contact if: you have any medication questions, your symptoms worsen and your pain is not controlled Follow-up/Referrals: Anjum Tan MD [Physician] - (Follow up CAROLINE-Dr. Tan's office should reach out to you with your appointment date and time) Cristian Sue, [Primary Care Provider] - 08/21/24 1:00 pm (Follow up in 1-2 weeks) Diet: Full liquid Addtl Attending Provider Instructions: You were hospitalized for abdominal pain and were found to have a blood clot to your spleen and a mass near your stomach and esophagus. After EGD we found a mass in your esophagus. This was biopsied and came back as adenocarcinoma (cancer), as discussed. You are to have close follow up with Dr. Tan, Oncology, with a PET scan. Dr. Tan's office will reach out to you to schedule an appointment. You will be on the Full liquid diet until the tumor can be shrunk/treated with Oncology. I encourage you to drink Boost/Ensure protein drinks. I will send a prescription of Zofran to your pharmacy to help with nausea. I recommend that you continue to take a Vitamin B supplement while on the liquid diet. You can continue to take Tylenol for pain. I have sent a 3 day supply of Tramadol to your pharmacy to takes as needed for pain. Your pain is likely caused by the splenic infarct and recent EGD with biopsy. You will not be continued on any blood thinners for the clot that caused the splenic infarct as this may cause the tumor in your esophagus to bleed. After speaking with your java tech lead, Dr. Rodney, you will be discontinuing your Plavix. You are many years out from your most recent stent placement, and at high bleeding risk with the biopsy and tumor. It is recommended that you follow up with your PCP in 1-2 weeks after being discharged. Pending Studies at Discharge: Yes Studies:: further pathology studies Stand-Alone Forms: My [facility], Smoking Cessation Medications and DC Order Prescriptions: New acetaminophen [Tylenol Extra Strength] 500 mg Tablet 1,000 mg PO TID PRN (Reason: pain) Qty: 60 0RF vitamin B complex [Vitamins B Complex] Capsule 1 cap PO QAM Qty: 30 0RF ondansetron 4 mg tablet,disintegrating 4 mg PO Q8H PRN (Reason: nausea and vomiting) Qty: 30 0RF tramadol 50 mg tablet 50 mg PO Q4H PRN (Reason: pain) Qty: 12 0RF Continued nitroglycerin 0.4 mg tablet, sublingual 0.4 mg buccal Q5M PRN (Reason: chest pain) Qty: 25 5RF Trelegy Ellipta 100-62.5-25 mcg blister with device 1 inh inhalation DAILY 30 Days Qty: 60 10RF ezetimibe [Zetia] 10 mg tablet 10 mg PO DAILY Qty: 90 3RF metformin 500 mg tablet extended release 24 hr 2,000 mg PO DAILY 90 Days Qty: 360 1RF ferrous sulfate 325 mg (65 mg iron) tablet 325 mg PO DAILY Qty: 30 3RF atorvastatin 80 mg tablet 80 mg PO DAILY Qty: 90 3RF Rx Instructions: for cholesterol donepezil 10 mg tablet 10 mg PO DAILY Qty: 90 3RF losartan 50 mg tablet 50 mg PO DAILY Qty: 90 3RF metoprolol succinate 50 mg tablet extended release 24 hr 50 mg PO DAILY Qty: 90 3RF albuterol sulfate 90 mcg/actuation HFA aerosol inhaler 2 puff inhalation UD PRN (Reason: shortness of breath or wheezing) Rx Instructions: 2 puffs inhaled q 4-6 hours PRN; Discontinued clopidogrel [Plavix] 75 mg tablet 75 mg PO DAILY Qty: 90 3RF Discharge Orders: Discharge Order (Routine); Ordered 08/11/24 Ordered By: Linda Zaman/Other Patient Handouts: High Blood Sugar (Hyperglycemia), Hypoglycemia (Low Blood Sugar), Full Liquid Diet Dc, Type 2 Diabetes Admission Data Admit Date/Time: 08/07/24 23:30 Attending Provider: Linda Murry Admit Provider: Barrera Currie Primary Care Provider: Cristian Sue Other Providers: Keith Waller; Barrera Currie; Luis E Rodney; James Martin; Anjum Tan Hospital Stay Data Consultations 08/07/24 17:57 ED Decision to Admit Stat 08/07/24 19:21 Consult General Surgery Routine 08/08/24 01:48 Consult Cardiology Routine Consult Gastroenterology Routine 08/08/24 16:12 Consult Oncology Routine Procedures Performed Operation Date: 08/09/24 17:35 Actual Procedures p EGD Biopsy Dilatation - James Martin MD Diagnostic Imagining Performed Abdomen/Pelvis CT 08/07/24 15:58 CT abd pelvis IV con only CLINICAL HISTORY: lower abd pain TECHNIQUE: Helical axial images of the abdomen and pelvis were obtained and displayed. Automated dose lowering techniques and/or adjustment according to patient size were utilized for this exam. This exam was performed with intravenous contrast. CT DOSE: 1127.28 mGy.cm COMPARISON: Prior CT abdomen pelvis 06/25/2022 FINDINGS: Lower chest: Bibasilar atelectasis versus scarring is seen. Liver: Subcentimeter hypodensities in the liver are too small to characterize. Gallbladder and biliary tree: Cholelithiasis is seen without evidence of cholecystitis. No intra- or extrahepatic biliary ductal dilation. Pancreas: Unremarkable, no focal lesions. Spleen: Wedge-shaped hypoperfusion of the spleen is noted. There is new from prior exam. Adrenals: Unremarkable. Kidneys and ureters: Bilateral lobulation of the kidney is again seen. Bladder: Unremarkable. Reproductive organs: Unremarkable. Bowel: Diverticulosis is seen without diverticulitis. The appendix is normal. Lymph nodes Retroperitoneal: Unremarkable. Pelvic: Unremarkable. Mesenteric: There is a soft tissue mass adjacent to the lesser gastric curvature measuring 3.2 x 2.4 cm with a hypodense center. There are subcentimeter surrounding nodules. Peritoneum: Normal. Vessels: Atherosclerotic calcifications are seen. Tiny infrarenal aneurysm measures 26 mm in diameter. Abdominal wall: A fat-containing umbilical hernia is seen. Bones: Degenerative changes in the visualized spine. IMPRESSION: 1. There is a mass abutting the stomach concerning for necrotic lymph node with surrounding subcentimeter nodes, likely malignancy of unknown origin. 2. Wedge-shaped hypodensities in the spleen, splenic infarcts cannot be excluded. 3. Diverticulosis without diverticulitis. 4. Additional findings as above. ACT 112: Negative or not required by law. Electronically signed by: Carrington Lew M.D. 08/07/2024 4:32 PM Discharge Instructions Given to Patient (Per Discharging Provider) You were hospitalized for abdominal pain and were found to have a blood clot to your spleen and a mass near your stomach and esophagus. After EGD we found a mass in your esophagus. This was biopsied and came back as adenocarcinoma (cancer), as discussed. You are to have close follow up with Dr. Tan, Oncology, with a PET scan. Dr. Tna's office will reach out to you to schedule an appointment. You will be on the Full liquid diet until the tumor can be shrunk/treated with Oncology. I encourage you to drink Boost/Ensure protein drinks. I will send a prescription of Zofran to your pharmacy to help with nausea. I recommend that you continue to take a Vitamin B supplement while on the liquid diet. You can continue to take Tylenol for pain. I have sent a 3 day supply of Tramadol to your pharmacy to takes as needed for pain. Your pain is likely caused by the splenic infarct and recent EGD with biopsy. You will not be continued on any blood thinners for the clot that caused the splenic infarct as this may cause the tumor in your esophagus to bleed. After speaking with your java tech lead, Dr. Rodney, you will be discontinuing your Plavix. You are many years out from your most recent stent placement, and at h igh bleeding risk with the biopsy and tumor. It is recommended that you follow up with your PCP in 1-2 weeks after being discharged. Supervising Physician Co-Signing Physician Notes RAPHAEL Supervision Note: I personally saw and examined the patient. I verified all salazar points and agree with RAPHAEL Patel with the following exceptions and/or additions: S-Had some nausea this AM, resolved with Zofran. We discussed the results of his biopsy from the esophagus and next steps with him and his two daughters at bedside No bloody stools or black stools, no vomiting, tolerating full liquids diet otherwise. O- Vitals reviewed Gen: AAOx3, NAD HEENT: Anicteric sclerae, EOMI CV: RRR no mgr nl S1S2 Pulm: CTAB no wcr CBC, BMP, pathology reviewed A/E-56-zppy-old male here with abdominal pain from splenic infarct found to have undifferentiated adenocarcinoma of the esophagus Monitored for GI bleeding status post biopsy-holding Plavix and anticoagulation--> no melena, no drop in hgb Tolerating full liquids diet, pain controlled Stable for discharge to home with close outpatient follow-up with oncology for further evaluation and treatment of esophageal cancer Total Time Total Time Spent Total Time Spent (In Minutes): 35 mins Coding Level of Care Code None Diagnoses Adenocarcinoma C80.1 Splenic infarct D73.5 CAD (coronary artery disease) I25.10 Chronic systolic CHF (congestive heart failure) I50.22 Hypertension I10 Type 2 diabetes mellitus E11.9 COPD (chronic obstructive pulmonary disease) J44.9 Dementia F03.90
[2024-08-11] MEDS: ONDANSETRON INJ 2 MG/ML 2 ML VIAL IV PRN (11:45)
[2024-08-11 11:51] VITALS: PULSE 59; RESP 20; TEMP 97.7; O2SAT 93
[2024-08-11 13:50] VITALS: BP 111/71
--- NOTE | 2024-08-11 13:57 | Billing Data ---
Date of Service August 11, 2024 Coding Level of Care Code 29193 INP/OBS DISCH >30 MIN
== END 2024-08-11 14:51 | disposition home or self-care (01) | DRG 815 ==
LOC: ED 14:22 → 2N 23:30 → SUATTDRO 23:30 → 2N 08-08 01:17